=== PATIENT | male | born 1955 | race Caucasian/White ===

== ENCOUNTER 2017-01-26 09:16 | Inpatient (IN) | payer BC ==
[2017-01-26 09:45] VITALS: BMI 22.3
[2017-01-26] MEDS ORDERED: Aspirin 325 mg EC Tablets PO STA (10:06)
--- NOTE | 2017-01-26 10:09 | ED PDOC ---
HPI: Chest Pain Time Seen by Provider: 01/26/17 09:27 Chief Complaint (Nursing): Chest Pain Chief Complaint (Provider): Chest Pain History Per: Patient History/Exam Limitations: no limitations Onset/Duration Of Symptoms: Mins Current Symptoms Are (Timing): Gone Now Severity: Moderate Quality: "Pain" Associated Symptoms: denies: Nausea, Dyspnea, Diaphoresis, Syncope Modifying Factors: None Exacerbating Factors: None Alleviating Factors: None Additional Complaint(s): Patient is a 61 year old male with a history of TB, presents to ED for evaluation of sudden onset throbbing chest pain with radiation into right arm this morning. Patients pain began at 9am and lasted 30 minutes with spontaneous resolution. Patient does note that a cough with nausea and vomiting for 4 days. States he had mild chest pain with coughing at that time but this morning's pain was much different and occurred without coughing. Patient denies any pain at this time. Patient states he normally takes ASA dialy but did not take any this morning. Of note: Patient being treated for TB, 3 months of medication left. PMD: Dr. Guardado in [place] Past Medical History Reviewed: Historical Data, Nursing Documentation, Vital Signs Vital Signs: Last Vital Signs Temp 98.5 F 01/26/17 16:07 Pulse 62 01/26/17 16:07 Resp 18 01/26/17 17:22 BP 138/82 01/26/17 16:07 Pulse Ox 98 01/26/17 16:07 - Medical History PMH: Hypercholesterolemia - Surgical History Surgical History: No Surg Hx - Family History Family History: States: No Known Family Hx - Living Arrangements Living Arrangements: With Family - Social History Current smoker - smoking cessation education provided: No (Quit 4 days ago ) Alcohol: Occasional Drugs: Denies - Home Medications Home Medications: Ambulatory Orders Medication Instructions Recorded Aspirin [Aspirin Chewable] 81 mg PO DAILY 01/26/17 Isoniazid [Niazid] 300 mg PO DAILY 01/26/17 Pravastatin Sodium 40 mg PO DAILY 01/26/17 Pyridoxine [Vitamin B6] 50 mg PO DAILY 01/26/17 - Allergies Allergies/Adverse Reactions: Allergies Allergy/AdvReac Type Severity Reaction Status Date / Time Influenza Virus Vaccines Allergy RASH Verified 01/26/17 17:14 SILVIA Risk Score for UA/NSTEMI - SILVIA Risk Score Age > 64: NO 3 or more CAD Risk Factors: NO Known CAD (Stenosis greater than 50%): NO Aspirin use in past 7 days: NO Severe Angina: NO EKG ST changes greater than 0.5mm: NO Positive Cardiac Marker: NO SILVIA Score: 0 Risk %: 5% Review of Systems ROS Statement: Except As Marked, All Systems Reviewed And Found Negative Constitutional: Negative for: Weakness Eyes: Negative for: Vision Change ENT: Negative for: Ear Pain, Throat Pain Cardiovascular: Positive for: Chest Pain. Negative for: Palpitations, Light Headedness Respiratory: Positive for: Cough. Negative for: Shortness of Breath Gastrointestinal: Positive for: Vomiting. Negative for: Nausea Musculoskeletal: Positive for: Arm Pain. Negative for: Neck Pain, Back Pain Skin: Negative for: Rash Neurological: Negative for: Weakness, Numbness Physical Exam - Reviewed Nursing Documentation Reviewed: Yes Vital Signs Reviewed: Yes - Physical Exam Appears: Positive for: Non-toxic, No Acute Distress Skin: Positive for: Normal Color, Warm Eye Exam: Positive for: Normal appearance Neck: Positive for: Normal, Painless ROM Cardiovascular/Chest: Positive for: Regular Rate, Rhythm, Chest Non Tender. Negative for: Murmur Respiratory: Positive for: Normal Breath Sounds. Negative for: Respiratory Distress Gastrointestinal/Abdominal: Positive for: Normal Exam. Negative for: Tenderness Back: Positive for: Normal Inspection Extremity: Positive for: Normal ROM Neurologic/Psych: Positive for: Alert, Oriented - Laboratory Results Result Diagrams: 01/26/17 10:40 01/26/17 10:40 - ECG ECG: Positive for: Interpreted By Me ECG Rhythm: Positive for: Sinus Tachycardia Interpretation Of Abn EKG: with occasional PVC's Rate: 103 O2 Sat by Pulse Oximetry: 97 (RA) Pulse Ox Interpretation: Normal Medical Decision Making Medical Decision Making: Time: 1000 Initial impression: Chest pain r/o ACS Initial plan: -- CMP -- Troponin -- CBC -- CXR -- ASA Time: 1320 Labs reviewed: Troponin negative Discussed lab results with patient advised that we are waiting a CXR but he will be admitted to Dr. Jimenez, [facility] [employer] because his PMD does not come to this hospital pt given asa Time: 1430 CXR: No active pulmonary disease Time: 1435 paged for admission Time: 1441 contacted, case discussed, requesting D-Dimer. Agrees with plan and will give admission orders pt aware of plan. pt eating, states cp subsided. Plan: -- dr jimenez requests D-Dimer ddimer .52, ordered CT chest rule out pe Scribe Attestation: Documented by Rebeca Logan acting as a scribe for Maco Ramey MD MD Scribe Attestation: All medical record entries made by the Scribe were at my direction and personally dictated by me. I have reviewed the chart and agree that the record accurately reflects my personal performance of the history, physical exam, medical decision making, and the department course for this patient. I have also personally directed, reviewed, and agree with the discharge instructions and disposition. Disposition - Clinical Impression Clinical Impression: Chest pain - Patient ED Disposition Is Patient to be Admitted: Yes Counseled Patient/Family Regarding: Studies Performed, Diagnosis - Disposition Disposition Time: 12:00 Condition: GOOD
[2017-01-26 10:52] LABS: BASO % 0.6 % (0.0-2.0); EOS # 0.1 K/uL (0.0-0.7); EOS % 1.9 % (0.0-4.0); HEMATOCRIT 40.5 % (35.0-51.0); LYMPH # 0.9 K/uL (1.0-4.3); MEAN CELL VOLUME 94.5 fl (80.0-94.0); MEAN CORPUSCULAR HEMOGLOBIN 31.3 pg (27.0-31.0); MEAN CORPUSCULAR HGB CONC 33.2 g/dL (33.0-37.0); MEAN PLATELET VOLUME 8.6 fl (7.2-11.7); MONO # 0.6 K/uL (0.0-0.8); NEUT # 2.3 K/uL (1.8-7.0); NEUT % 60.5 % (50.0-75.0); NRBC % 0.1 % (0.0-0.0); RED CELL DISTRIBUTION WIDTH 13.5 % (11.5-14.5); WHITE BLOOD COUNT 3.9 K/uL (4.8-10.8)
[2017-01-26 10:54] LABS: CHLORIDE 102 mmol/L (98-107)
[2017-01-26 10:55] LABS: POTASSIUM 4.1 MMOL/L (3.6-5.0); SODIUM 139 mmol/l (132-148)
[2017-01-26 10:57] LABS: AST/SGOT 24 U/L (17-59); BILIRUBIN,TOTAL 0.5 mg/dl (0.2-1.3); CARBON DIOXIDE 29 mmol/L (22-30); GFR AFRICAN-AMERICAN > 60
[2017-01-26 10:58] LABS: ALB/GLOB RATIO 1.2 (1.0-2.1); ALKALINE PHOSPHATASE 60 U/L (38-126); ALT/SGPT 31 U/L (21-72); BLOOD UREA NITROGEN 17 mg/dl (9-20); CALCIUM 8.9 mg/dL (8.4-10.2); GLUCOSE,RANDOM 116 mg/dL (75-110); TOTAL PROTEIN 7.1 G/DL (6.3-8.2)
[2017-01-26] MEDS ORDERED: Gadodiamide 287 MG/ML VIAL (15ML) IV ONE (13:49)
[2017-01-26] MEDS ORDERED: Iodixanol 320 MG/ML 100 ML BOTTLE IV ONE (15:56)
[2017-01-26] MEDS ORDERED: Sodium Chloride 0.9% 50 ML IV ONE (15:57)
[2017-01-26] MEDS ORDERED: Pneumococcal 23-Valent Vaccine IM ONE (17:50)
[2017-01-26] MEDS: Sodium Chloride 0.45% 1,000 ML IV SCH (18:49)
--- NOTE | 2017-01-26 18:53 | CT ---
CT chest with IV contrast Indication: Slightly elevated D-dimer Technique: Contiguous axial images were obtained through the chest with intravenous contrast enhancement. Sagittal and coronal reconstructions were generated and reviewed. IV Contrast: Visipaque [id number] Radiation dose (DLP): 402.40 MGy-cm. Comparison: Chest x-ray performed earlier the same day. Findings: Visualized portions of the inferior thyroid gland appear unremarkable. The mediastinal and hilar vascular structures appear within normal limits. The heart appears within normal limits of size. Dense coronary artery calcifications. No large central or segmental pulmonary embolus evident. Mild emphysematous changes. No focal consolidation. No pleural effusion. No pneumothorax. No suspicious pulmonary nodules measuring greater than 5 mm. Small hiatal hernia. Limited visualization of the upper abdomen appears grossly unremarkable. Mild degenerative changes of the spine. Impression: Mild emphysematous changes. No large central or segmental pulmonary embolus identified.
--- NOTE | 2017-01-26 19:40 | CP.PCM.HP ---
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 Patients pain began at 9am and lasted 30 minutes with spontaneous resolution. + non-productive cough with nausea and vomiting for 4 days. States he had mild chest pain with coughing at that time but this morning's pain was much different and occurred without coughing. Patient denies any pain at this time. Patient states he normally takes ASA daily but did not take any this morning. Present on Admission - Present on Admission Any Indicators Present on Admission: No History of DVT/PE: No History of Uncontrolled Diabetes: No Urinary Catheter: No Decubitus Ulcer Present: No Review of Systems - Review of Systems All systems: reviewed and no additional remarkable complaints except - Cardiovascular Cardiovascular: As Per HPI - Respiratory Respiratory: As Per HPI Past Patient History - Past Medical History & Family History Past Medical History?: Yes Past Family History: Reviewed and not pertinent - Past Social History Smoking Status: Former Smoker Alcohol: Occasional Drugs: Denies - CARDIAC Hx Hypercholesterolemia: Yes - PULMONARY Hx Respiratory Disorders: Yes (TB) Hx Tuberculosis: Yes (Latent ) - NEUROLOGICAL Hx Neurological Disorder: No - HEENT Hx HEENT Problems: No - RENAL Hx Chronic Kidney Disease: No - ENDOCRINE/METABOLIC Hx Endocrine Disorders: No - HEMATOLOGICAL/ONCOLOGICAL Hx Blood Disorders: No Hx AIDS: No Hx Human Immunodeficiency Virus (HIV): No - INTEGUMENTARY Hx Dermatological Problems: No - MUSCULOSKELETAL/RHEUMATOLOGICAL Hx Musculoskeletal Disorders: No Hx Falls: No - GASTROINTESTINAL Hx Gastrointestinal Disorders: No - GENITOURINARY/GYNECOLOGICAL Hx Genitourinary Disorders: No - PSYCHIATRIC Hx Psychophysiologic Disorder: Yes Hx Anxiety: Yes Hx Substance Use: No - SURGICAL HISTORY Hx Surgeries: No Hx Orthopedic Surgery: Yes (knee) - ANESTHESIA Hx Anesthesia: Yes Hx Anesthesia Reactions: No Hx Malignant Hyperthermia: No Has any member of the family had a problem w/ anesthesia?: No Meds Allergies/Adverse Reactions: Allergies Allergy/AdvReac Type Severity Reaction Status Date / Time Influenza Virus Vaccines Allergy RASH Verified 01/26/17 17:14 Physical Exam - Constitutional Appears: Well, No Acute Distress - Head Exam Head Exam: ATRAUMATIC, NORMAL INSPECTION, NORMOCEPHALIC - Eye Exam Eye Exam: EOMI, Normal appearance, PERRL Pupil Exam: NORMAL ACCOMODATION, PERRL - ENT Exam ENT Exam: Mucous Membranes Moist, Normal Exam - Neck Exam Neck exam: Positive for: Full Rom, Normal Inspection - Respiratory Exam Respiratory Exam: Clear to Auscultation Bilateral, NORMAL BREATHING PATTERN - Cardiovascular Exam Cardiovascular Exam: REGULAR RHYTHM, +S1, +S2 - GI/Abdominal Exam GI & Abdominal Exam: Normal Bowel Sounds, Soft. absent: Rebound, Tenderness - Extremities Exam Extremities exam: Positive for: full ROM, normal capillary refill, normal inspection - Back Exam Back exam: NORMAL INSPECTION. absent: CVA tenderness (L), CVA tenderness (R) - Neurological Exam Neurological exam: Alert, CN II-XII Intact, Normal Gait, Oriented x3, Reflexes Normal - Psychiatric Exam Psychiatric exam: Normal Affect, Normal Mood - Skin Skin Exam: Dry, Intact, Normal Color, Warm Results - Vital Signs Recent Vital Signs: Last Vital Signs Temp 98.5 F 01/26/17 16:07 Pulse 103 H 01/26/17 18:31 Resp 18 01/26/17 17:22 BP 138/82 01/26/17 16:07 Pulse Ox 97 01/26/17 18:31 - Labs Result Diagrams: 01/26/17 10:40 01/26/17 10:40 Labs: Laboratory Results - last 24 hr 01/26/17 01/26/17 14:50 18:30 D-Dimer, Quantitative 0.52 H Troponin I < 0.0120 - EKG Data EKG shows normal: Sinus rhythm, QRS complexes, ST-T waves Rate: Normal - Imaging and Cardiology CT scan - chest Status: Report reviewed by me Additional comment: Impression: Mild emphysematous changes. No large central or segmental pulmonary embolus identified. Assessment & Plan (1) Chest pain Assessment and Plan: R/O ACS VS Atypical Chest PAin Admit to Tele ASA/Pravastatin/Pepcid Serial Trop and EKHG x3 Echocardiogram Cardiology Consult Status: Acute Priority: High (2) Acute bronchitis Assessment and Plan: IVF IV Levaquin ID and Pulmonary Consult Sputum C/S Status: Acute Priority: High (3) Tuberculosis Assessment and Plan: Latent TB Continue INH and Pyidoxine ID Consulted Status: Acute (4) DVT prophylaxis Assessment and Plan: Lovenox 40mg Sq daily Status: Inactive Priority: Medium
--- NOTE | 2017-01-26 19:42 | CP.PCM.CON ---
History of Present Illness - History of Present Illness History of Present Illness: 61 year old male with a history of latent TB as well as Obstructive sleep apnea presents to ED for evaluation of sudden onset throbbing chest pain with radiation into right arm this morning. associated palpatations and weakness Pain different from pain induced by coughing Patients pain began at 9am and lasted 30 minutes with spontaneous resolution. Patient does note that a cough with nausea for 4 days. Cough productive of green phlegm Of note: Patient being treated for latent TB, 3 months of medication left. Review of Systems - Constitutional Constitutional: As Per HPI - EENT Eyes: absent: As Per HPI, Blind Spots, Blurred Vision, Change in Vision, Decreased Night Vision, Diplopia, Discharge, Dry Eye, Exophthalmos, Floaters, Irritation, Itchy Eyes, Loss of Peripheral Vision, Pain, Photophobia, Requires Corrective Lenses, Sees Flashes, Spots in Vision, Tunnel Vision, Other Visual Disturbances, Loss of Vision, Other Ears: absent: As Per HPI, Decreased Hearing, Ear Discharge, Ear Pain, Tinnitus, Abnormal Hearing, Disequilibrium, Dizziness, Other Nose/Mouth/Throat: absent: As Per HPI, Epistaxis, Nasal Congestion, Nasal Discharge, Nasal Obstruction, Nasal Trauma, Nose Pain, Post Nasal Drip, Sinus Pain, Sinus Pressure, Bleeding Gums, Change in Voice, Dental Pain, Dry Mouth, Dysphagia, Halitosis, Hoarsness, Lip Swelling, Mouth Lesions, Mouth Pain, Odynophagia, Sore Throat, Throat Swelling, Tongue Swelling, Facial Pain, Neck Pain, Neck Mass, Other - Cardiovascular Cardiovascular: As Per HPI, Chest Pain at Rest, Chest Pain with Activity - Respiratory Respiratory: absent: As Per HPI, Cough, Dyspnea, Hemoptysis, Dyspnea on Exertion , Wheezing, Snoring, Stridor, Pain on Inspiration, Chest Congestion, Excessive Mucous Production, Change in Mucous Color, Pain with Coughing, Other - Gastrointestinal Gastrointestinal: absent: As Per HPI, Abdominal Pain, Belching, Bloating, Change in Bowel Habits, Change in Stool Character, Coffee Ground Emesis, Constipation, Cramping, Diarrhea, Dyspepsia, Dysphagia, Early Satiety, Excessive Flatus, Fecal Incontinence, Heartburn, Hematemesis, Hematochezia, Loose Stools, Melena, Nausea, Odynophagia, Temesmus, Vomiting, Other - Genitourinary Genitourinary: absent: As Per HPI, Change in Urinary Stream, Difficulty Urinating, Dysuria, Flank Pain, Hematuria, Pyuria, Nocturia, Urinary Incontinence, Urinary Frequency, Urinary Hesitance, Urinary Urgency, Voiding Freq/Small Amts, Freq UTI, Hx Renal/Bladder Calculi, Hx /Renal Surgery, Bladder Distension, Other - Musculoskeletal Musculoskeletal: absent: As Per HPI, Abnormal Gait, Arthralgias, Atrophy, Back Pain, Deformity, Joint Swelling, Limited Range of Motion, Loss of Height, Muscle Cramps, Muscle Weakness, Myalgias, Neck Pain, Numbness, Radiating Pain into Limb, Stiffness, Tingling, Other - Integumentary Integumentary: absent: As Per HPI, Acne, Alopecia, Bleeding Lesions, Change in Hair, Change in Nails, Change in Pigmentation, Changing Lesions, Dry Skin, Erythema, Furuncle, Hirsutism, Lesions, New Lesions, Non-Healing Lesions, Photosensitivity, Pruritus, Rash, Skin Pain, Skin Ulcer, Sores, Striae, Swelling , Unusual Bruising, Wounds, Jaundice, Other - Neurological Neurological: absent: As Per HPI, Abnormal Gait, Abnormal Hearing, Abnormal Movements, Abnormal Speech, Behavioral Changes, Burning Sensations, Confusion, Convulsions, Disequilibrium, Dizziness, Numbness, Focal Weakness, Frequent Falls , Headaches, Lack of Coordination, Loss of Vision, Memory Loss, Paresthesias, Radicular Pain, Restless Legs, Sensory Deficit, Syncope, Tingling, Tremor, Vertigo, Weakness, Other Visual Disturbances, Other - Psychiatric Psychiatric: absent: As Per HPI, Abnormal Sleep Pattern, Anhedonia, Anxiety, Auditory Hallucinations, Behavioral Changes, Change in Appetite, Change in Libido, Confusion, Depression, Difficulty Concentrating, Hallucinations, Homicidal Ideation, Hopelessness, Irritability, Memory Loss, Mood Swings, Panic Attacks, Paranoia, Suicidal Ideation, Visual Hallucinations, Tactile Hallucinations, Other - Endocrine Endocrine: absent: As Per HPI, Change in Body Appearance, Change in Libido, Cold Intolorance, Deepening of Voice, Excessive Sweating, Fatigue, Flushing, Heat Intolorance, Increase in Ring/Shoe/Hat Size, Palpitations, Polydipsia, Polyphagia, Polyuria, Other - Hematologic/Lymphatic Hematologic: absent: As Per HPI, Easy Bleeding, Easy Bruising, Lymphadenopathy, Other Past Patient History - Past Medical History & Family History Past Medical History?: Yes - Past Social History Alcohol: Occasional Drugs: Denies - CARDIAC Hx Hypercholesterolemia: Yes - PULMONARY Hx Respiratory Disorders: Yes (TB) Hx Tuberculosis: Yes - NEUROLOGICAL Hx Neurological Disorder: No - HEENT Hx HEENT Problems: No - RENAL Hx Chronic Kidney Disease: No - ENDOCRINE/METABOLIC Hx Endocrine Disorders: No - HEMATOLOGICAL/ONCOLOGICAL Hx Blood Disorders: No Hx AIDS: No Hx Human Immunodeficiency Virus (HIV): No - INTEGUMENTARY Hx Dermatological Problems: No - MUSCULOSKELETAL/RHEUMATOLOGICAL Hx Musculoskeletal Disorders: No Hx Falls: No - GASTROINTESTINAL Hx Gastrointestinal Disorders: No - GENITOURINARY/GYNECOLOGICAL Hx Genitourinary Disorders: No - PSYCHIATRIC Hx Psychophysiologic Disorder: Yes Hx Anxiety: Yes Hx Substance Use: No - SURGICAL HISTORY Hx Surgeries: No Hx Orthopedic Surgery: Yes (knee) - ANESTHESIA Hx Anesthesia: Yes Hx Anesthesia Reactions: No Hx Malignant Hyperthermia: No Has any member of the family had a problem w/ anesthesia?: No Meds Allergies/Adverse Reactions: Allergies Allergy/AdvReac Type Severity Reaction Status Date / Time Influenza Virus Vaccines Allergy RASH Verified 01/26/17 17:14 - Medications Medications: Current Medications Aspirin (Aspirin Chewable) 325 mg PO DAILY [facility] Enoxaparin Sodium (Lovenox) 40 mg SC DAILY [facility] PRN Reason: Protocol Famotidine (Pepcid) 20 mg PO BID [facility] Sodium Chloride (Sodium Chloride 0.45%) 1,000 mls @ 100 mls/hr IV .Q10H SHANNAN Stop: 01/27/17 17:31 Last Admin: 01/26/17 18:49 Dose: 100 mls/hr Levofloxacin/Dextrose (Levaquin 500mg) 100 mls @ 100 mls/hr IVPB DAILY [facility] Isoniazid (Niazid) 300 mg PO DAILY [facility] Pravastatin Sodium (Pravachol) 40 mg PO DAILY [facility] Pyridoxine HCl (Vitamin B6 50 Mg Tab) 50 mg PO DAILY [facility] Physical Exam - Constitutional Appears: Non-toxic, Chronically Ill - Head Exam Head Exam: ATRAUMATIC, NORMOCEPHALIC - Eye Exam Eye Exam: EOMI, PERRL. absent: Scleral icterus - ENT Exam ENT Exam: Mucous Membranes Dry, Normal External Ear Exam - Neck Exam Neck exam: Negative for: Lymphadenopathy - Respiratory Exam Respiratory Exam: Decreased Breath Sounds, Clear to Auscultation Bilateral - Cardiovascular Exam Cardiovascular Exam: REGULAR RHYTHM, +S1, +S2 - GI/Abdominal Exam GI & Abdominal Exam: Diminished Bowel Sounds, Soft. absent: Tenderness - Rectal Exam Rectal Exam: Deferred - Exam Exam: NORMAL INSPECTION - Extremities Exam Extremities exam: Positive for: pedal pulses present. Negative for: calf tenderness, pedal edema, tenderness - Back Exam Back exam: absent: CVA tenderness (L), CVA tenderness (R), paraspinal tenderness - Neurological Exam Neurological exam: Alert, CN II-XII Intact, Oriented x3, Reflexes Normal - Psychiatric Exam Psychiatric exam: Normal Mood - Skin Skin Exam: Dry, Intact Results - Vital Signs Recent Vital Signs: Last Vital Signs Temp 98.5 F 01/26/17 16:07 Pulse 103 H 01/26/17 18:31 Resp 18 01/26/17 17:22 BP 138/82 01/26/17 16:07 Pulse Ox 97 01/26/17 18:31 - Labs Result Diagrams: 01/26/17 10:40 01/26/17 10:40 Labs: Laboratory Results - last 24 hr 01/26/17 01/26/17 14:50 18:30 D-Dimer, Quantitative 0.52 H Troponin I < 0.0120 Assessment & Plan - Assessment and Plan (Free Text) Assessment: chest pain r/o acs cough with phlegm r/o acute bronchitis hx latent tb on rx hx obst sleep apnea may need bipap check cultures , serologies and old records
[2017-01-26] MEDS ORDERED: Sodium Chloride 3% for Inhalation 4 ML VIAL.NEB IH PRN (19:46)
[2017-01-27 01:41] LABS: RBC URINE 3 /hpf (0-3); URINE BILIRUBIN NEGATIVE (NEGATIVE); URINE BLOOD NEGATIVE (NEGATIVE); URINE COLOR YELLOW (YELLOW); URINE GLUCOSE (UA) NEG (Normal); URINE KETONE NEGATIVE (NEGATIVE); URINE LEUKOCYTE ESTERASE NEG Leu/uL (Negative); URINE PROTEIN NEGATIVE (NEGATIVE); URINE UROBILINOGEN 0.2-1.0 mg/dL (0.2-1.0); WBC URINE < 1 /hpf (0-5)
[2017-01-27] MEDS: Sodium Chloride 0.45% 1,000 ML IV SCH ×2 (03:24→14:30)
[2017-01-27] MEDS: Enoxaparin 40 mg Syringe SC SCH (08:44)
[2017-01-27] MEDS: Pravastatin Sodium 40 MG TAB PO SCH (08:46)
--- NOTE | 2017-01-27 09:45 | CARD ---
APPROVED REPORT EKG Measurement Heart [id number] <Conclusion> Sinus rhythm with premature supraventricular complexes Otherwise normal ECG
--- NOTE | 2017-01-27 11:16 | CARD ---
APPROVED REPORT EXAM: Two-dimensional and M-mode echocardiogram with Doppler and color Doppler. Other Information Quality : GoodRhythm : NSR INDICATION Chest Pain 2D DIMENSIONS IVSd0.96 (0.7-1.1cm)LVDd4.60 (3.9-5.9cm) LVOT Diameter2.58 (1.8-2.4cm)PWd1.05 (0.7-1.1cm) IVSs1.38 (0.8-1.2cm)LVDs3.75 (2.5-4.0cm) FS (%) 18.4 %PWs1.26 (0.8-1.2cm) M-Mode DIMENSIONS Left Atrium (MM)3.89 (2.5-4.0cm)IVSd1.27 (0.7-1.1cm) Aortic Root3.36 (2.2-3.7cm)LVDd5.38 (4.0-5.6cm) Aortic Cusp Exc.1.30 (1.5-2.0cm)PWd0.91 (0.7-1.1cm) IVSs1.90 cmFS (%) 40 % LVDs3.23 (2.0-3.8cm)PWs1.52 cm Aortic Valve AoV Peak Glwpzroa989.7cm/[place] Peak GR.75mmHgLVOT Peak Cgyjtpwp16.3cm/s LVOT VTI15.77cmAVA (VMAX)0.58cm2 Mitral Valve E/A ratio0.0 TDI E/Lateral E'0.0E/Medial E'0.0 LEFT VENTRICLE The left ventricle is normal size. There is mild concentric left ventricular hypertrophy. Left ventricle systolic function is normal. The Ejection Fraction is 65-70%. There is normal LV segmental wall motion. Mitral inflow signal poor in quality, to asses LV diastolic compliance. RIGHT VENTRICLE The right ventricle is normal size. There is normal right ventricular wall thickness. The right ventricular systolic function is normal. ATRIA The left atrium size is normal. The right atrium size is normal. AORTIC VALVE The aortic valve is moderately to severely sclerotic. No aortic regurgitation is present. There is severe valvular aortic stenosis. Calculated aortic valve area is 0.95 cm2 with maximum pressure gradient of 74 mmHg MITRAL VALVE The mitral valve is normal in structure and function. There is no evidence of mitral valve prolapse. There is no mitral valve stenosis. There is no mitral valve regurgitation noted. TRICUSPID VALVE The tricuspid valve is normal in structure and function. There is no tricuspid valve regurgitation noted. PULMONIC VALVE The pulmonary valve is normal in structure and function. There is no pulmonic valvular regurgitation. GREAT VESSELS The aortic root is normal in size. The IVC is normal in size and collapses >50% with inspiration. PERICARDIAL EFFUSION The pericardium appears normal. <Conclusion> The left ventricle is normal size. There is mild concentric left ventricular hypertrophy. There is normal LV segmental wall motion. Left ventricle systolic function is normal. The Ejection Fraction is 65-70%. The aortic valve is moderately to severely sclerotic. There is severe valvular aortic stenosis. Calculated aortic valve area is 0.95 cm2 with maximum pressure gradient of 74 mmHg
--- NOTE | 2017-01-27 12:56 | CON ---
DATE: 01/27/2017 REASON FOR CONSULTATION: Chest pain. HISTORY OF PRESENT ILLNESS: The patient is a 61-year-old male who is a heavy smoker, occasional drin ker. He has BiPAP at home. He does not have a irrigation equipment remover, but he sees a primary physician. He presents because of chest pain. The patient has been experiencing flu-like symptoms, including produ ctive cough for the past few days and attributes his chest pain to extreme bouts of coughing. Howeve r, he lately started to experience sharp chest pain radiating to the right arm. The patient is unawa re of any prior cardiac history. SOCIAL HISTORY: The patient is a heavy smoker. Occasional drinker. MEDICATIONS: Aspirin 325 mg once a day, Levaquin 500 mg intravenously daily, Lovenox 40 mg subcutane ously once a day, isoniazid 300 mg daily, Pepcid 20 mg p.o. twice a day, Pravachol 40 mg once a day, half normal saline at 100 mL an hour, vitamin B6 50 mg once a day. PHYSICAL EXAMINATION: GENERAL: The patient is a middle-aged male who does not appear to be in any distress. VITAL SIGNS: Blood pressure 124/79, heart rate 66, temperature 98.2, respirations 18. HEENT: Normocephalic. NECK: No JVD. CHEST: Bilateral rhonchi. HEART: S1, S2 regular. ABDOMEN: Soft. EXTREMITIES: No edema. LABORATORY DATA: CBC: WBC 3.9, hemoglobin 13.4, hematocrit 40.5, platelet count 123,000. SMA-7 is within normal limits except for glucose 116 and creatinine 0.6. Three sets of troponins are negative . D-dimer 0.25. CT angio of the chest: No large central or segmental pulmonary embolus evident, mi ld emphysematous changes. No suspicious pulmonary nodules. EKG revealed sinus rhythm with premature supraventricular complexes. Echocardiographic study revealed normal left ventricular size with mild concentric LVH, normal systolic function, ejection fraction estimated between 65-70%, severe valvula r aortic stenosis. ASSESSMENT: 1. Exacerbation of chronic obstructive lung disease. 2. Severe aortic stenosis. RECOMMENDATIONS: Continue current aspirin 325 mg once a day, Levaquin at 500 mg intravenously daily, subcutaneous Lovenox at 40 mg once a day, Pravachol at 40 mg once a day. I recommend obtaining ches t x-ray. I will review the echocardiograph study performed yesterday for the conclusion of severe va lvular aortic stenosis and offer the patient cardiac catheterization after resolution of his chronic obstructive lung disease exacerbation. Jose Scott MD cc: [id number] TT: 01/27/2017 12:55:43 Confirmation # [id number] Dictation # [id number]
--- NOTE | 2017-01-27 13:02 | RAD ---
HISTORY: COMPARISON: Comparison chest dated 01/26/2017. TECHNIQUE: Chest PA and lateral FINDINGS: LUNGS: No acute infiltrates however there may be some minimal bibasilar atelectasis due to low lung volumes. . PLEURA: No significant pleural effusion identified. No pneumothorax apparent. CARDIOVASCULAR: Normal. OSSEOUS STRUCTURES: Minor multilevel degenerative spondylosis of the thoracic spine. VISUALIZED UPPER ABDOMEN: Normal. OTHER FINDINGS: None. IMPRESSION: No acute consolidation however there may be some minimal bibasilar atelectasis due to low lung volumes
--- NOTE | 2017-01-27 14:46 | CP.PCM.PN ---
Subjective - Date & Time of Evaluation Date of Evaluation: 01/27/17 Time of Evaluation: 08:00 - Subjective Subjective: chest pain resolved at rest CT Chest remarkable for diffuse coronary calcifications no fever or leukocytosis influenza negative troponins neg thus far and no malignant arrythmias thus far will likely need stress test cont rx as per dr jimenez Objective - Vital Signs/Intake and Output Vital Signs (last 24 hours): Temp Pulse Resp BP Pulse Ox 98.2 F 66 18 124/79 95 01/27/17 08:05 01/27/17 08:05 01/27/17 08:05 01/27/17 08:05 01/27/17 08:05 - Medications Medications: Current Medications Aspirin (Aspirin) 325 mg PO DAILY [facility] Last Admin: 01/27/17 08:54 Dose: 325 mg Enoxaparin Sodium (Lovenox) 40 mg SC DAILY [facility] PRN Reason: Protocol Last Admin: 01/27/17 08:44 Dose: 40 mg Famotidine (Pepcid) 20 mg PO BID [facility] Last Admin: 01/27/17 08:53 Dose: 20 mg Sodium Chloride (Sodium Chloride 0.45%) 1,000 mls @ 100 mls/hr IV .Q10H [facility] Stop: 01/27/17 17:31 Last Admin: 01/27/17 03:24 Dose: 100 mls/hr Levofloxacin/Dextrose (Levaquin 500mg) 100 mls @ 100 mls/hr IVPB DAILY [facility] Last Admin: 01/27/17 08:55 Dose: 100 mls/hr Isoniazid (Niazid) 300 mg PO DAILY [facility] Last Admin: 01/27/17 08:54 Dose: 300 mg Pravastatin Sodium (Pravachol) 40 mg PO DAILY [facility] Last Admin: 01/27/17 08:46 Dose: 40 mg Pyridoxine HCl (Vitamin B6 50 Mg Tab) 50 mg PO DAILY [facility] Last Admin: 01/27/17 08:54 Dose: 50 mg - Constitutional Appears: Non-toxic, Chronically Ill - Head Exam Head Exam: NORMOCEPHALIC - Eye Exam Eye Exam: PERRL. absent: Scleral icterus - ENT Exam ENT Exam: Mucous Membranes Dry - Neck Exam Neck Exam: absent: Lymphadenopathy - Respiratory Exam Respiratory Exam: Decreased Breath Sounds - Cardiovascular Exam Cardiovascular Exam: REGULAR RHYTHM, +S1, +S2 - GI/Abdominal Exam GI & Abdominal Exam: Distended, Soft. absent: Tenderness - Rectal Exam Rectal Exam: Deferred - Exam Exam: NORMAL INSPECTION - Extremities Exam Extremities Exam: absent: Calf Tenderness, Pedal Edema - Back Exam Back Exam: absent: CVA tenderness (L), CVA tenderness (R) - Neurological Exam Neurological Exam: Alert, Awake, Oriented x3 Neuro motor strength exam: Left Upper Extremity: 4, Right Upper Extremity: 4, Left Lower Extremity: 4, Right Lower Extremity: 4 - Psychiatric Exam Psychiatric exam: Normal Mood - Skin Skin Exam: Dry, Intact Assessment and Plan (1) Acute bronchitis Status: Acute (2) Chest pain Status: Acute (3) Latent tuberculosis Status: Acute
--- NOTE | 2017-01-27 15:58 | CON ---
DATE: 01/27/2017 HISTORY OF PRESENT ILLNESS: The patient is a 61-year-old male who was referred for pulmonary evaluat ion by Dr. Horan. He was admitted with complaints of chest pains on and off for the past 2 days radi ating to the right arm. He was seen in the Emergency Room and admitted for workup to rule out acute coronary syndrome. He admits to cigarette smoking and he indicated that he had been sick for 2 days prior to his presentation. He has no cough recently, but in the past has had a cough productive of g reenish phlegm. PAST MEDICAL HISTORY: History of latent TB and obstructive sleep apnea syndrome. FAMILY HISTORY: Nonrevealing. SOCIAL HISTORY: He lives at home with his family. Smokes cigarettes, a pack a day. Does not drink alcohol. REVIEW OF SYSTEMS: Essentially unremarkable. PHYSICAL EXAMINATION: GENERAL: The patient is alert, oriented, appears to be in no apparent distress at present. VITAL SIGNS: Blood pressure 124/70, pulse of 66, respiratory rate is 18. He is afebrile. O2 sat 95 % on room air. SKIN: Shows fair turgor. HEENT: Pupils equal and react to light and accommodation. Mouth shows fair hygiene. NECK: JVP flat. LUNGS: Fair aeration with mild expiratory wheezing. HEART: S1, S2. ABDOMEN: Soft, nontender, no organomegaly. EXTREMITIES: Show no edema or cyanosis. CENTRAL NERVOUS SYSTEM: Grossly intact. LABORATORY DATA: WBC 3.9, hemoglobin 13.4, platelet count 123,000. Sodium 139, potassium 4.4, BUN 1 7, creatinine 0.6, serum glucose 116. Troponin less than 0.012. Influenza A and B negative. Chest x-ray official report pending, but CAT scan of the chest indicates small hiatal hernia, emphysematous changes of the lung, no large central pulmonary emboli. Echocardiogram is remarkable for left ventr icle normal. There is mild concentric LVH. There is a normal left ventricular segmental wall motion , left ventricular systolic function with normal ejection fraction 65%-70%, aortic valve is moderatel y to severely sclerotic. There is severe valvular aortic stenosis. IMPRESSION: Acute exacerbation of mild chronic obstructive pulmonary disease, aortic stenosis on ech ocardiogram, upper respiratory tract infection. The patient was advised cardiac workup, but refused, saying that he is going home today to follow up with his primary care doctor. I agree with bronchod ilwendy therapy and antibiotics, oxygen as needed. We will sign off case and see again at your reques t since the patient indicates he is going home. Brooks Lacey MD cc: [id number] TT: 01/27/2017 15:57:14 Confirmation # [id number] Dictation # [id number]
--- NOTE | 2017-01-28 00:33 | CP.PCM.PN ---
Subjective - Date & Time of Evaluation Date of Evaluation: 01/27/17 Time of Evaluation: 23:30 - Subjective Subjective: Seen and Examined at the bed side.Chest pain resolved at rest. No fever or Chills. H/O similar chest pain in the past but never had cardiac catheterization. Objective - Vital Signs/Intake and Output Vital Signs (last 24 hours): Temp Pulse Resp BP Pulse Ox 98.4 F 70 19 133/81 97 01/28/17 00:09 01/28/17 00:09 01/28/17 00:09 01/28/17 00:09 01/28/17 00:09 - Medications Medications: Current Medications Aspirin (Aspirin) 325 mg PO DAILY [facility] Last Admin: 01/27/17 08:54 Dose: 325 mg Enoxaparin Sodium (Lovenox) 40 mg SC DAILY [facility] PRN Reason: Protocol Last Admin: 01/27/17 08:44 Dose: 40 mg Famotidine (Pepcid) 20 mg PO BID [facility] Last Admin: 01/27/17 16:24 Dose: 20 mg Levofloxacin/Dextrose (Levaquin 500mg) 100 mls @ 100 mls/hr IVPB DAILY [facility] Last Admin: 01/27/17 08:55 Dose: 100 mls/hr Isoniazid (Niazid) 300 mg PO DAILY [facility] Last Admin: 01/27/17 08:54 Dose: 300 mg Pravastatin Sodium (Pravachol) 40 mg PO DAILY [facility] Last Admin: 01/27/17 08:46 Dose: 40 mg Pyridoxine HCl (Vitamin B6 50 Mg Tab) 50 mg PO DAILY [facility] Last Admin: 01/27/17 08:54 Dose: 50 mg - Constitutional Appears: Well, No Acute Distress - Head Exam Head Exam: ATRAUMATIC, NORMAL INSPECTION, NORMOCEPHALIC - Eye Exam Eye Exam: EOMI, Normal appearance, PERRL Pupil Exam: NORMAL ACCOMODATION, PERRL - ENT Exam ENT Exam: Mucous Membranes Moist, Normal Exam - Neck Exam Neck Exam: Full ROM, Normal Inspection. absent: Lymphadenopathy - Respiratory Exam Respiratory Exam: Clear to Ausculation Bilateral, NORMAL BREATHING PATTERN - Cardiovascular Exam Cardiovascular Exam: REGULAR RHYTHM, +S1, +S2. absent: Murmur - GI/Abdominal Exam GI & Abdominal Exam: Soft, Normal Bowel Sounds. absent: Tenderness - Extremities Exam Extremities Exam: Full ROM, Normal Capillary Refill, Normal Inspection. absent : Joint Swelling, Pedal Edema - Back Exam Back Exam: NORMAL INSPECTION. absent: CVA tenderness (L), CVA tenderness (R) - Neurological Exam Neurological Exam: Alert, Awake, CN II-XII Intact, Normal Gait, Oriented x3 - Psychiatric Exam Psychiatric exam: Normal Affect, Normal Mood - Skin Skin Exam: Dry, Intact, Normal Color, Warm Assessment and Plan (1) Chest pain Assessment & Plan: R/O CAD Echo showed Aortic Stenosis, and going for Cardiac Catheterize. Continue ASA/Statin Status: Suspected (2) Acute bronchitis Assessment & Plan: Continue IV Levaquin Status: Resolved (3) Tuberculosis Assessment & Plan: Complete INH for 3more months Status: Inactive (4) DVT prophylaxis Status: Inactive
[2017-01-28] MEDS: Enoxaparin 40 mg Syringe SC SCH (08:35)
[2017-01-28] MEDS: Pravastatin Sodium 40 MG TAB PO SCH (08:36)
--- NOTE | 2017-01-28 13:41 | PN ---
DATE: 01/28/2017 SUBJECTIVE: The patient denies any chest pain or shortness of breath at this time. PHYSICAL EXAMINATION: VITAL SIGNS: Blood pressure 126/80, heart rate 85, temperature 98.3, respirations 18. HEENT: Normocephalic. NECK: No JVD. CHEST: Bilateral rhonchi. HEART: S1, S2 regular. Grade IV/ ejection systolic murmur over the left sternal border. ABDOMEN: Soft. EXTREMITIES: No edema. LABORATORIES: A total of 3 troponins are negative. ASSESSMENT: 1. Chest pain, myocardial infarction is ruled out. 2. Severe aortic stenosis. 3. Chronic obstructive lung disease. 4. History of sleep apnea. RECOMMENDATIONS: Continue current aspirin 325 mg once a day, Lovenox 40 mg once a day, Pravachol 40 mg once a day. The case was discussed with the patient and his at the bedside extensively. The patient agrees for cardiac catheterization next week at [facility] to evaluate the severity of aortic stenosis and coexistence of any coronary artery disease. Jose Scott MD cc: [id number] TT: 01/28/2017 13:40:20 Confirmation # [id number] Dictation # [id number]
--- NOTE | 2017-01-29 00:07 | CP.PCM.PN ---
Subjective - Date & Time of Evaluation Date of Evaluation: 01/29/17 Time of Evaluation: 17:05 - Subjective Subjective: Denies Cough, chest pain r sob at this time. scheduled for Cardiac Cath on Monday. I have spoken to the patient and his who stated he had similar episodes of Cardiac finding and had a cardiac stress test. They want the cardiac catheterization to be done ASP. Denies fever or chills. Objective - Vital Signs/Intake and Output Vital Signs (last 24 hours): Temp Pulse Resp BP Pulse Ox 98.3 F 76 18 118/73 95 01/28/17 21:00 01/28/17 21:00 01/28/17 21:00 01/28/17 21:00 01/28/17 21:00 - Medications Medications: Current Medications Aspirin (Aspirin) 325 mg PO DAILY [facility] Last Admin: 01/28/17 08:37 Dose: 325 mg Enoxaparin Sodium (Lovenox) 40 mg SC DAILY [facility] PRN Reason: Protocol Last Admin: 01/28/17 08:35 Dose: 40 mg Famotidine (Pepcid) 20 mg PO BID [facility] Last Admin: 01/28/17 16:04 Dose: 20 mg Levofloxacin/Dextrose (Levaquin 500mg) 100 mls @ 100 mls/hr IVPB DAILY [facility] Last Admin: 01/28/17 08:35 Dose: 100 mls/hr Isoniazid (Niazid) 300 mg PO DAILY [facility] Last Admin: 01/28/17 08:35 Dose: 300 mg Pravastatin Sodium (Pravachol) 40 mg PO DAILY [facility] Last Admin: 01/28/17 08:36 Dose: 40 mg Pyridoxine HCl (Vitamin B6 50 Mg Tab) 50 mg PO DAILY [facility] Last Admin: 01/28/17 08:36 Dose: 50 mg - Constitutional Appears: Well, No Acute Distress - Head Exam Head Exam: ATRAUMATIC, NORMAL INSPECTION, NORMOCEPHALIC - Eye Exam Eye Exam: EOMI, Normal appearance, PERRL Pupil Exam: NORMAL ACCOMODATION, PERRL - ENT Exam ENT Exam: Mucous Membranes Moist, Normal Exam - Neck Exam Neck Exam: Full ROM, Normal Inspection. absent: Lymphadenopathy - Respiratory Exam Respiratory Exam: Clear to Ausculation Bilateral, NORMAL BREATHING PATTERN - Cardiovascular Exam Cardiovascular Exam: REGULAR RHYTHM, +S1, +S2. absent: Murmur - GI/Abdominal Exam GI & Abdominal Exam: Soft, Normal Bowel Sounds. absent: Tenderness - Extremities Exam Extremities Exam: Full ROM, Normal Capillary Refill, Normal Inspection. absent : Joint Swelling, Pedal Edema - Back Exam Back Exam: NORMAL INSPECTION - Neurological Exam Neurological Exam: Alert, Awake, CN II-XII Intact, Normal Gait, Oriented x3 - Psychiatric Exam Psychiatric exam: Normal Affect, Normal Mood - Skin Skin Exam: Dry, Intact, Normal Color, Warm Assessment and Plan (1) Chest pain Assessment & Plan: Aortic Stenosis R/O CAD Will Go for Cardiac Catheterize. Continue ASA/Statin ehs specialist on Board. Status: Suspected (2) Acute bronchitis Assessment & Plan: Continue IV Levaquin Status: Resolved (3) Tuberculosis Assessment & Plan: Complete INH for 3more months Status: Inactive (4) DVT prophylaxis Status: Inactive Status: Suspected
[2017-01-29] MEDS: Pravastatin Sodium 40 MG TAB PO SCH (09:07)
[2017-01-29] MEDS: Enoxaparin 40 mg Syringe SC SCH (09:08)
--- NOTE | 2017-01-29 13:29 | CP.PCM.PN ---
Subjective - Date & Time of Evaluation Date of Evaluation: 01/29/17 Time of Evaluation: 09:00 - Subjective Subjective: denies chest pain recent cxr positive for atelecatsis vs infiltrate iv rx reordered has Aortic stenosis as well as coronary calcifications needs cardiac cath to further define etiology of chest pain Objective - Vital Signs/Intake and Output Vital Signs (last 24 hours): Temp Pulse Resp BP Pulse Ox 98.6 F 78 18 106/64 95 01/29/17 12:00 01/29/17 12:00 01/29/17 12:00 01/29/17 12:00 01/29/17 12:00 - Medications Medications: Current Medications Aspirin (Aspirin) 325 mg PO DAILY [facility] Last Admin: 01/29/17 09:03 Dose: 325 mg Enoxaparin Sodium (Lovenox) 40 mg SC DAILY [facility] PRN Reason: Protocol Last Admin: 01/29/17 09:08 Dose: 40 mg Famotidine (Pepcid) 20 mg PO BID [facility] Last Admin: 01/29/17 09:08 Dose: 20 mg Levofloxacin/Dextrose (Levaquin 500mg) 100 mls @ 100 mls/hr IVPB DAILY [facility] Last Admin: 01/29/17 09:04 Dose: 100 mls/hr Isoniazid (Niazid) 300 mg PO DAILY [facility] Last Admin: 01/29/17 09:09 Dose: 300 mg Pravastatin Sodium (Pravachol) 40 mg PO DAILY [facility] Last Admin: 01/29/17 09:07 Dose: 40 mg Pyridoxine HCl (Vitamin B6 50 Mg Tab) 50 mg PO DAILY [facility] Last Admin: 01/29/17 09:07 Dose: 50 mg - Constitutional Appears: Non-toxic, Chronically Ill - Head Exam Head Exam: NORMOCEPHALIC - Eye Exam Eye Exam: PERRL. absent: Scleral icterus - ENT Exam ENT Exam: Mucous Membranes Dry, Normal External Ear Exam - Neck Exam Neck Exam: absent: Lymphadenopathy, Thyromegaly - Respiratory Exam Respiratory Exam: Decreased Breath Sounds, Rhonchi - Cardiovascular Exam Cardiovascular Exam: REGULAR RHYTHM, +S1, +S2, Murmur - GI/Abdominal Exam GI & Abdominal Exam: Distended, Soft. absent: Tenderness - Rectal Exam Rectal Exam: Deferred - Exam Exam: NORMAL INSPECTION - Extremities Exam Extremities Exam: absent: Calf Tenderness, Pedal Edema - Back Exam Back Exam: absent: CVA tenderness (L), CVA tenderness (R) - Neurological Exam Neurological Exam: Alert, Awake, Oriented x3 Neuro motor strength exam: Left Upper Extremity: 4, Right Upper Extremity: 4, Left Lower Extremity: 4, Right Lower Extremity: 4 Assessment and Plan (1) Acute bronchitis Status: Resolved (2) Chest pain Status: Suspected (3) Latent tuberculosis Status: Acute
--- NOTE | 2017-01-29 15:03 | PN ---
DATE: 01/29/2017 SUBJECTIVE: The patient denies any chest pain or shortness of breath. PHYSICAL EXAMINATION: VITAL SIGNS: Blood pressure 106/64, heart rate 78, temperature 98.6, respiration 18. HEENT: Normocephalic. NECK: No JVD. CHEST: Minimal rhonchi. HEART: S1, S2 regular. Grade IV/ ejection systolic murmur over than left sternal border. ABDOMEN: Soft. EXTREMITIES: No edema. ASSESSMENT: 1. Chest pain, myocardial infarction was ruled out. 2. Severe aortic stenosis. 3. Chronic obstructive lung disease and sleep apnea. RECOMMENDATIONS: Continue aspirin 325 mg once a day, subcutaneous Lovenox at 40 mg once a day, Levaq uin 500 mg intravenously daily, hold Lovenox tomorrow. The patient will be kept n.p.o. after breakfa st for cardiac catheterization tomorrow at [facility]. Jose Scott MD cc: [id number] TT: 01/29/2017 15:02:32 Confirmation # [id number] Dictation # [id number]
--- NOTE | 2017-01-29 22:45 | CP.PCM.PN ---
Subjective - Date & Time of Evaluation Date of Evaluation: 01/29/17 Time of Evaluation: 17:00 Objective - Vital Signs/Intake and Output Vital Signs (last 24 hours): Temp Pulse Resp BP Pulse Ox 97.8 F 73 18 112/78 95 01/29/17 21:00 01/29/17 21:00 01/29/17 21:00 01/29/17 21:00 01/29/17 21:00 Intake and Output: 01/29/17 01/30/17 18:59 06:59 Intake Total 950 Balance 950 - Medications Medications: Current Medications Aspirin (Aspirin) 325 mg PO DAILY [facility] Last Admin: 01/29/17 09:03 Dose: 325 mg Enoxaparin Sodium (Lovenox) 40 mg SC DAILY [facility] PRN Reason: Protocol Last Admin: 01/29/17 09:08 Dose: 40 mg Famotidine (Pepcid) 20 mg PO BID [facility] Last Admin: 01/29/17 16:42 Dose: 20 mg Levofloxacin/Dextrose (Levaquin 500mg) 100 mls @ 100 mls/hr IVPB DAILY [facility] Last Admin: 01/29/17 09:04 Dose: 100 mls/hr Isoniazid (Niazid) 300 mg PO DAILY [facility] Last Admin: 01/29/17 09:09 Dose: 300 mg Pravastatin Sodium (Pravachol) 40 mg PO DAILY [facility] Last Admin: 01/29/17 09:07 Dose: 40 mg Pyridoxine HCl (Vitamin B6 50 Mg Tab) 50 mg PO DAILY [facility] Last Admin: 01/29/17 09:07 Dose: 50 mg Assessment and Plan (1) Chest pain Status: Suspected
[2017-01-30] MEDS: Enoxaparin 40 mg Syringe SC SCH (08:21)
[2017-01-30] MEDS: Pravastatin Sodium 40 MG TAB PO SCH (08:40)
[2017-01-30] MEDS ORDERED: Enoxaparin 40 mg Syringe SC ONE (10:00)
--- NOTE | 2017-01-30 12:21 | PN ---
DATE: 01/30/2017 The patient denies any chest pain or dizziness. PHYSICAL EXAMINATION: VITAL SIGNS: Blood pressure 109/73, heart rate 70, temperature 98.1, respirations 20. HEENT: Normocephalic. NECK: No JVD. CHEST: Minimal rhonchi. HEART: S1, S2 regular. Grade IV/ ejection systolic murmur over left sternal border. ABDOMEN: Soft. EXTREMITIES: No edema. ASSESSMENT: 1. Chest pain, myocardial infarction is ruled out. 2. Severe aortic stenosis. RECOMMENDATIONS: Continue current aspirin and Pravachol therapy. The patient was offered cardiac ca theterization today at [facility] at 1 p.m. However, the patient and his declined because of previous tragic memory with another family member that happened in [facility], which they c onsidered to be an ominous step to go to [facility]. In the meantime, the patient could not be scheduled for cardiac catheterization at [facility] because of scheduling issue. The patient w ill undergo the procedure tomorrow at 9:30 at [facility]. Jose Scott MD cc: [id number] TT: 01/30/2017 12:20:19 Confirmation # [id number] Dictation # [id number]
[2017-01-30 13:11] LABS: PARTIAL THROMBOPLASTIN TIME 26.9 SECONDS (23.3-32.5)
--- NOTE | 2017-01-31 00:29 | CP.PCM.PN ---
Subjective - Date & Time of Evaluation Date of Evaluation: 01/30/17 Time of Evaluation: 15:15 Objective - Vital Signs/Intake and Output Vital Signs (last 24 hours): Temp Pulse Resp BP Pulse Ox 98.0 F 68 18 114/72 97 01/30/17 23:37 01/30/17 23:37 01/30/17 23:37 01/30/17 23:37 01/30/17 23:37 Intake and Output: 01/30/17 01/31/17 18:59 06:59 Intake Total 1300 Balance 1300 - Medications Medications: Current Medications Aspirin (Aspirin) 325 mg PO DAILY [facility] Last Admin: 01/30/17 12:18 Dose: 325 mg Famotidine (Pepcid) 20 mg PO BID [facility] Last Admin: 01/30/17 17:10 Dose: 20 mg Levofloxacin/Dextrose (Levaquin 500mg) 100 mls @ 100 mls/hr IVPB DAILY [facility] Last Admin: 01/30/17 08:40 Dose: 100 mls/hr Isoniazid (Niazid) 300 mg PO DAILY [facility] Last Admin: 01/30/17 08:24 Dose: 300 mg Pravastatin Sodium (Pravachol) 40 mg PO DAILY [facility] Last Admin: 01/30/17 08:40 Dose: 40 mg Pyridoxine HCl (Vitamin B6 50 Mg Tab) 50 mg PO DAILY [facility] Last Admin: 01/30/17 08:25 Dose: 50 mg - Labs Labs: PT 11.4 SECONDS (9.6-11.2) H 01/30/17 12:20 INR 1.10 (0.92-1.08) H 01/30/17 12:20 APTT 26.9 SECONDS (23.3-32.5) 01/30/17 12:20 Assessment and Plan (1) Chest pain Status: Suspected
[2017-01-31] MEDS: Pravastatin Sodium 40 MG TAB PO SCH (09:12)
--- NOTE | 2017-01-31 12:06 | CP.PCM.PN ---
Subjective - Date & Time of Evaluation Date of Evaluation: 01/31/17 Time of Evaluation: 12:05 Objective - Vital Signs/Intake and Output Vital Signs (last 24 hours): Temp Pulse Resp BP Pulse Ox 97.8 F 74 18 127/80 95 01/31/17 07:57 01/31/17 09:00 01/31/17 07:57 01/31/17 07:57 01/31/17 07:57 - Medications Medications: Current Medications Aspirin (Aspirin) 325 mg PO DAILY [facility] Last Admin: 01/31/17 09:14 Dose: 325 mg Famotidine (Pepcid) 20 mg PO BID [facility] Last Admin: 01/31/17 09:12 Dose: 20 mg Levofloxacin/Dextrose (Levaquin 500mg) 100 mls @ 100 mls/hr IVPB DAILY [facility] Last Admin: 01/31/17 09:00 Dose: 100 mls/hr Isoniazid (Niazid) 300 mg PO DAILY [facility] Last Admin: 01/31/17 09:12 Dose: 300 mg Pravastatin Sodium (Pravachol) 40 mg PO DAILY [facility] Last Admin: 01/31/17 09:12 Dose: 40 mg Pyridoxine HCl (Vitamin B6 50 Mg Tab) 50 mg PO DAILY [facility] Last Admin: 01/31/17 09:12 Dose: 50 mg - Labs Labs: PT 11.4 SECONDS (9.6-11.2) H 01/30/17 12:20 INR 1.10 (0.92-1.08) H 01/30/17 12:20 APTT 26.9 SECONDS (23.3-32.5) 01/30/17 12:20 Assessment and Plan (1) Chest pain Status: Suspected
--- NOTE | 2017-01-31 13:22 | PN ---
DATE: 01/31/2017 The patient denies chest pain or shortness of breath. PHYSICAL EXAMINATION: VITAL SIGNS: Blood pressure 101/68, heart rate 79, temperature 97.7, respirations 18. HEENT: Normocephalic. NECK: No JVD. CHEST: Clear. HEART: S1, S2 regular. Grade IV/ ejection systolic murmur over the left sternal border. ABDOMEN: Soft. EXTREMITIES: No edema. LABORATORIES: PT 11.4, INR is 1.1, PTT 26.9. ASSESSMENT: 1. Chest pain, myocardial infarction was ruled out. 2. Severe aortic stenosis. 3. Chronic obstructive lung disease. 4. Sleep apnea. RECOMMENDATIONS: Continue current aspirin and Pravachol therapy. The cardiac catheterization that w as scheduled for today has been canceled because of technical issue with the cardiac veterinary laboratory diagnostician that ne eded maintenance service. The case was rescheduled for tomorrow morning at 9:00 a.m. However, if e technical issues remain with [facility] veterinary laboratory diagnostician, the patient agreed to be done at [facility]. Jose Scott MD cc: [id number] TT: 01/31/2017 13:21:24 Confirmation # [id number] Dictation # [id number]
[2017-02-01 07:51] LABS: HEMATOCRIT 41.1 % (35.0-51.0); MEAN CELL VOLUME 92.6 fl (80.0-94.0); MEAN CORPUSCULAR HEMOGLOBIN 31.5 pg (27.0-31.0); MEAN CORPUSCULAR HGB CONC 34.1 g/dL (33.0-37.0); RED CELL DISTRIBUTION WIDTH 13.1 % (11.5-14.5); WHITE BLOOD COUNT 4.1 K/uL (4.8-10.8)
[2017-02-01 08:04] LABS: BLOOD UREA NITROGEN 19 mg/dl (9-20); CALCIUM 9.5 mg/dL (8.4-10.2); CARBON DIOXIDE 32 mmol/L (22-30); CHLORIDE 103 mmol/L (98-107); GFR AFRICAN-AMERICAN > 60; GLUCOSE,RANDOM 96 mg/dL (75-110); SODIUM 145 mmol/l (132-148)
[2017-02-01 08:21] LABS: POTASSIUM 5.4 MMOL/L (3.6-5.0)
[2017-02-01] MEDS: Pravastatin Sodium 40 MG TAB PO SCH (09:00)
--- NOTE | 2017-02-01 15:14 | PN ---
DATE: 02/01/2017 The patient underwent cardiac catheterization which revealed moderate aortic insufficiency and modera te aortic stenosis; however, further imaging suggests to me moderate to severe aortic insufficiency, normal coronary circulation and normal ejection fraction. The case was discussed with the cardiothor acic surgeon at [facility] at the approval of the patient's , and plans were being mad e to transfer the patient to [place]. However, the changed her mind and requested to be vlilatoro sferred to another surgeon at [place]. I did leave her my cell phone number to have the surgeon melly dailey the cryptologic supervisor at [place] contact me, but neither has called me, and the hospital is in the pr ocess of arranging for a bed and a transfer of the patient to [place]. Jose Scott MD cc: [id number] TT: 02/01/2017 15:13:48 Confirmation # [id number] Dictation # [id number] mn
[2017-02-01 19:36] LABS: BLOOD UREA NITROGEN 17 mg/dl (9-20); CALCIUM 9.1 mg/dL (8.4-10.2); CARBON DIOXIDE 27 mmol/L (22-30); CHLORIDE 102 mmol/L (98-107); GFR AFRICAN-AMERICAN > 60; GLUCOSE,RANDOM 153 mg/dL (75-110); POTASSIUM 4.5 MMOL/L (3.6-5.0); SODIUM 141 mmol/l (132-148)
--- NOTE | 2017-02-01 23:22 | CP.PCM.PN ---
Subjective - Date & Time of Evaluation Date of Evaluation: 02/01/17 Time of Evaluation: 14:00 Objective - Vital Signs/Intake and Output Vital Signs (last 24 hours): Temp Pulse Resp BP Pulse Ox 97.8 F 85 18 108/69 97 02/01/17 19:44 02/01/17 19:44 02/01/17 19:44 02/01/17 19:44 02/01/17 19:44 - Medications Medications: Current Medications Aspirin (Aspirin) 325 mg PO DAILY [facility] Last Admin: 02/01/17 09:00 Dose: Not Given Famotidine (Pepcid) 20 mg PO BID [facility] Last Admin: 02/01/17 20:16 Dose: 20 mg Levofloxacin/Dextrose (Levaquin 500mg) 100 mls @ 100 mls/hr IVPB DAILY [facility] Last Admin: 02/01/17 09:00 Dose: Not Given Isoniazid (Niazid) 300 mg PO DAILY [facility] Last Admin: 02/01/17 09:00 Dose: Not Given Pravastatin Sodium (Pravachol) 40 mg PO DAILY [facility] Last Admin: 02/01/17 09:00 Dose: Not Given Pyridoxine HCl (Vitamin B6 50 Mg Tab) 50 mg PO DAILY [facility] Last Admin: 02/01/17 09:00 Dose: Not Given - Labs Labs: 02/01/17 05:30 02/01/17 19:00 PT 11.4 SECONDS (9.6-11.2) H 01/30/17 12:20 INR 1.10 (0.92-1.08) H 01/30/17 12:20 APTT 26.9 SECONDS (23.3-32.5) 01/30/17 12:20 Assessment and Plan (1) Chest pain Assessment & Plan: S/P Cardiac Cath- Normal Coronaries. Confirmed Aortic Stenosis Status: Resolved (2) Aortic stenosis Status: Acute (3) Latent tuberculosis Status: Acute (4) DVT prophylaxis Status: Inactive (5) Bronchitis Assessment & Plan: IV ABx Improving Status: Acute
[2017-02-02] MEDS: Pravastatin Sodium 40 MG TAB PO SCH (09:13)
--- NOTE | 2017-02-02 14:14 | PN ---
DATE: 02/02/2017 The patient is comfortable. He denies any chest pain or shortness of breath. No groin bleeding. PHYSICAL EXAMINATION: VITAL SIGNS: Blood pressure 95/58, heart rate 105, temperature 98.2, respirations 18. HEENT: Normocephalic. NECK: No JVD. CHEST: Clear. HEART: S1, S2 regular. Grade IV/ ejection systolic murmur over left sternal border and III/ ear ly diastolic murmur. ABDOMEN: Soft. EXTREMITIES: No edema. No groin hematoma. ASSESSMENT: 1. Moderate to severe aortic insufficiency. 2. Moderate aortic stenosis. 3. Chronic obstructive lung disease. 4. 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 RECOMMENDATIONS: Continue current isoniazid, Pravachol and aspirin. Cardiac surgeon from [facility] contacted me last evening. I did fax him the pressure tracings of a simultaneous aortic va lve and left ventricular recordings. I did also send him a text video clip of the patient's aortogra m. Awaiting a bed to be available at [facility] for transfer. Jose Scott MD cc: [id number] TT: 02/02/2017 14:13:52 Confirmation # [id number] Dictation # [id number] mn
--- NOTE | 2017-02-02 20:43 | CP.PCM.PN ---
Subjective - Date & Time of Evaluation Date of Evaluation: 02/02/17 Time of Evaluation: 15:00 - Subjective Subjective: Seen and examined at the bed side. No chest pain or sob at rest. S/P Cardiac Catheter showed Mod-severe but normal Coronaries. Awaiting transfer to [facility] for AV Replacement. Objective - Vital Signs/Intake and Output Vital Signs (last 24 hours): Temp Pulse Resp BP Pulse Ox 97.5 F L 57 L 18 179/86 H 100 02/02/17 18:54 02/02/17 18:54 02/02/17 18:54 02/02/17 18:54 02/02/17 18:54 - Medications Medications: Current Medications Aspirin (Aspirin) 325 mg PO DAILY [facility] Last Admin: 02/02/17 09:12 Dose: 325 mg Famotidine (Pepcid) 20 mg PO BID [facility] Last Admin: 02/02/17 17:07 Dose: 20 mg Levofloxacin/Dextrose (Levaquin 500mg) 100 mls @ 100 mls/hr IVPB DAILY [facility] Isoniazid (Niazid) 300 mg PO DAILY [facility] Pravastatin Sodium (Pravachol) 40 mg PO DAILY [facility] Last Admin: 02/02/17 09:13 Dose: 40 mg Pyridoxine HCl (Vitamin B6 50 Mg Tab) 50 mg PO DAILY [facility] Last Admin: 02/02/17 09:12 Dose: 50 mg - Labs Labs: 02/01/17 05:30 02/01/17 19:00 PT 11.4 SECONDS (9.6-11.2) H 01/30/17 12:20 INR 1.10 (0.92-1.08) H 01/30/17 12:20 APTT 26.9 SECONDS (23.3-32.5) 01/30/17 12:20 - Constitutional Appears: Well, No Acute Distress - Head Exam Head Exam: ATRAUMATIC, NORMAL INSPECTION, NORMOCEPHALIC - Eye Exam Eye Exam: EOMI, Normal appearance, PERRL Pupil Exam: NORMAL ACCOMODATION, PERRL - ENT Exam ENT Exam: Mucous Membranes Moist, Normal Exam - Neck Exam Neck Exam: Full ROM, Normal Inspection. absent: Lymphadenopathy - Respiratory Exam Respiratory Exam: Clear to Ausculation Bilateral, NORMAL BREATHING PATTERN - Cardiovascular Exam Cardiovascular Exam: REGULAR RHYTHM, +S1, +S2, Murmur - GI/Abdominal Exam GI & Abdominal Exam: Soft, Normal Bowel Sounds. absent: Tenderness - Extremities Exam Extremities Exam: Full ROM, Normal Capillary Refill, Normal Inspection. absent : Joint Swelling, Pedal Edema - Back Exam Back Exam: NORMAL INSPECTION. absent: CVA tenderness (L), CVA tenderness (R) - Neurological Exam Neurological Exam: Alert, Awake, CN II-XII Intact, Normal Gait, Oriented x3 - Psychiatric Exam Psychiatric exam: Normal Affect, Normal Mood - Skin Skin Exam: Dry, Intact, Normal Color, Warm Assessment and Plan (1) Chest pain Assessment & Plan: ASA Status: Resolved (2) Aortic stenosis Assessment & Plan: Mood-Severe Stenosis; Normal Coronaries Status: Chronic (3) Latent tuberculosis Assessment & Plan: INH/Pyridoxine Status: Acute (4) DVT prophylaxis Assessment & Plan: Lovenox Status: Inactive (5) Bronchitis Assessment & Plan: Completed 7 days of ABx D/C Levaquin Status: Acute
[2017-02-03 08:46] VITALS: BP 114/76; PULSE 78; RESP 18; TEMP 98.1; O2SAT 95
[2017-02-03] MEDS: Pravastatin Sodium 40 MG TAB PO SCH (10:07)
--- NOTE | 2017-02-03 10:58 | PN ---
DATE: 02/03/2017 The patient denies any chest pain or groin bleeding. PHYSICAL EXAMINATION: VITAL SIGNS: Blood pressure 114/76, heart rate 78, temperature 98.1, respirations 18. HEENT: Normocephalic. NECK: No JVD. CHEST: Clear. HEART: S1, S2 regular. Grade IV/ ejection systolic murmur over the left sternal border and grade III/ early diastolic murmur over the aortic area. ASSESSMENT: 1. Moderate to severe aortic insufficiency. 2. Moderate aortic stenosis. 3. of pulmonary tuberculosis is being treated. 4. History of sleep apnea. RECOMMENDATIONS: Continue aspirin at 325 mg once a day, INH at 300 mg daily, Pravachol at 40 mg once a day, vitamin B6 50 mg once a day. Start subcutaneous Lovenox at 30 mg once a day. If there is no decision by [facility] to accept the patient, then the patient can be discharged and see his own car diologist and a cardiothoracic surgeon as an outpatient. Jose Scott MD cc: [id number] TT: 02/03/2017 10:57:36 Confirmation # [id number] Dictation # [id number]
[2017-02-03] MEDS ORDERED: Enoxaparin 30 mg Syringe SC SCH (11:00)
--- NOTE | 2017-02-03 11:02 | CP.PCM.PCO ---
Assessment/Plan - Assessment/Plan Assessment (Free Text): Pt stable, in no apparent distress. Pt is s/p cardiac cath and is being transferred to [facility] for aortic valve replacement. Pt seen and cleared for transfer to [place] by all consultants. Dr. Scott has been in contact with automatic drill operator at [place]. Discussed with Dr. Horan who has approved transfer. Pt and RN aware of plan - Problems Patient Problems: Problem List (Active/Current) Problem Status Priority Diagnosed Code Latent tuberculosis Acute R76.11 Aortic stenosis Chronic I35.0 Acute bronchitis Resolved High J20.9 Chest pain Resolved High R07.9
--- NOTE | 2017-02-03 23:21 | CP.PCM.DIS ---
Provider - Provider Date of Admission: 01/27/17 15:07 Attending physician: Angel Horan MD Time Spent in preparation of Discharge (in minutes): 25 Diagnosis - Discharge Diagnosis (1) Chest pain Status: Resolved Priority: High (2) Aortic stenosis Status: Chronic (3) Latent tuberculosis Status: Acute (4) DVT prophylaxis Status: Inactive Priority: Medium (5) Bronchitis Status: Acute Hospital Course - Lab Results Lab Results: Micro Results 01/29/17 14:09 Sputum Gram Stain - Final 01/29/17 14:09 Sputum Sputum Culture - Final NORMAL ORAL DARRION Most Recent Lab Values WBC 4.1 K/uL (4.8-10.8) L 02/01/17 05:30 RBC 4.44 Mil/uL (4.40-5.90) 02/01/17 05:30 Hgb 14.0 g/dL (12.0-18.0) 02/01/17 05:30 Hct 41.1 % (35.0-51.0) 02/01/17 05:30 MCV 92.6 fl (80.0-94.0) 02/01/17 05:30 MCH 31.5 pg (27.0-31.0) H 02/01/17 05:30 MCHC 34.1 g/dL (33.0-37.0) 02/01/17 05:30 RDW 13.1 % (11.5-14.5) 02/01/17 05:30 Plt Count 150 K/uL (130-400) 02/01/17 05:30 MPV 8.6 fl (7.2-11.7) 01/26/17 10:40 Neut % (Auto) 60.5 % (50.0-75.0) 01/26/17 10:40 Lymph % (Auto) 22.0 % (20.0-40.0) 01/26/17 10:40 [place] % (Auto) 15.0 % (0.0-10.0) H 01/26/17 10:40 Eos % (Auto) 1.9 % (0.0-4.0) 01/26/17 10:40 Baso % (Auto) 0.6 % (0.0-2.0) 01/26/17 10:40 Neut # 2.3 K/uL (1.8-7.0) 01/26/17 10:40 Lymph # 0.9 K/uL (1.0-4.3) L 01/26/17 10:40 [place] # 0.6 K/uL (0.0-0.8) 01/26/17 10:40 Eos # 0.1 K/uL (0.0-0.7) 01/26/17 10:40 Baso # 0.0 K/uL (0.0-0.2) 01/26/17 10:40 PT 11.4 SECONDS (9.6-11.2) H 01/30/17 12:20 INR 1.10 (0.92-1.08) H 01/30/17 12:20 APTT 26.9 SECONDS (23.3-32.5) 01/30/17 12:20 D-Dimer, Quantitative 0.52 mg/L FEU (0-0.50) H 01/26/17 14:50 Sodium 141 mmol/l (132-148) 02/01/17 19:00 Potassium 4.5 MMOL/L (3.6-5.0) 02/01/17 19:00 Chloride 102 mmol/L (98-107) 02/01/17 19:00 Carbon Dioxide 27 mmol/L (22-30) 02/01/17 19:00 Anion Gap 17 (10-20) 02/01/17 19:00 BUN 17 mg/dl (9-20) 02/01/17 19:00 Creatinine 0.7 mg/dL (0.8-1.5) L 02/01/17 19:00 Est GFR ( Amer) > 60 02/01/17 19:00 Est GFR (Non-Af Amer) > 60 02/01/17 19:00 Random Glucose 153 mg/dL (75-110) H 02/01/17 19:00 Calcium 9.1 mg/dL (8.4-10.2) 02/01/17 19:00 Total Bilirubin 0.5 mg/dl (0.2-1.3) 01/26/17 10:40 AST 24 U/L (17-59) 01/26/17 10:40 ALT 31 U/L (21-72) 01/26/17 10:40 Alkaline Phosphatase 60 U/L (38-126) 01/26/17 10:40 Troponin I 0.0160 ng/mL (0.00-0.120) 01/27/17 01:45 Total Protein 7.1 G/DL (6.3-8.2) 01/26/17 10:40 Albumin 3.9 g/dL (3.5-5.0) 01/26/17 10:40 Globulin 3.2 gm/dL (2.2-3.9) 01/26/17 10:40 Albumin/Globulin Ratio 1.2 (1.0-2.1) 01/26/17 10:40 Urine Color Yellow (YELLOW) 01/27/17 01:15 Urine Clarity Clear (Clear) 01/27/17 01:15 Urine pH 7.0 (5.0-8.0) 01/27/17 01:15 Ur Specific [place] 1.036 (1.003-1.030) H 01/27/17 01:15 Urine Protein Negative mg/dL (NEGATIVE) 01/27/17 01:15 Urine Glucose (UA) Neg mg/dL (Normal) 01/27/17 01:15 Urine Ketones Negative mg/dL (NEGATIVE) 01/27/17 01:15 Urine Blood Negative (NEGATIVE) 01/27/17 01:15 Urine Nitrate Negative (NEGATIVE) 01/27/17 01:15 Urine Bilirubin Negative (NEGATIVE) 01/27/17 01:15 Urine Urobilinogen 0.2-1.0 mg/dL (0.2-1.0) 01/27/17 01:15 Ur Leukocyte Esterase Neg Renée/uL (Negative) 01/27/17 01:15 Urine RBC (Auto) 3 /hpf (0-3) 01/27/17 01:15 Urine Microscopic WBC < 1 /hpf (0-5) 01/27/17 01:15 Urine Opiates Screen Negative (NEGATIVE) 01/27/17 18:50 Urine Methadone Screen Negative (NEGATIVE) 01/27/17 18:50 Ur Barbiturates Screen Negative (NEGATIVE) 01/27/17 18:50 Ur Phencyclidine Scrn Negative (NEGATIVE) 01/27/17 18:50 Ur Amphetamines Screen Negative (NEGATIVE) 01/27/17 18:50 U Benzodiazepines Scrn Negative (NEGATIVE) 01/27/17 18:50 U Oth Cocaine Metabols Negative (NEGATIVE) 01/27/17 18:50 U Cannabinoids Screen Negative (NEGATIVE) 01/27/17 18:50 Influenza Typ A,B (EIA) Negative for flu a/b (NEGATIVE) 01/27/17 01:45 Discharge Exam - Head Exam Head Exam: ATRAUMATIC, NORMAL INSPECTION, NORMOCEPHALIC Discharge Plan - Discharge Medications Prescriptions: Famotidine [Pepcid] 20 mg PO BID #30 tab - Follow Up Plan Condition: GOOD Disposition: Trans to Other Acute Care Hosp Instructions: Aortic Stenosis (DC), How to Stop Smoking (DC)
--- NOTE | 2017-02-23 09:33 | RAD ---
HISTORY: chest pain COMPARISON: 11/25/2014 TECHNIQUE: Chest PA and lateral FINDINGS: LUNGS: The lungs are clear. PLEURA: No significant pleural effusion identified. No pneumothorax apparent. CARDIOVASCULAR: Normal. OSSEOUS STRUCTURES: Within normal limits for the patient's age. VISUALIZED UPPER ABDOMEN: Normal. OTHER FINDINGS: None. IMPRESSION: No active pulmonary disease.
== END 2017-02-03 12:13 | disposition short-term general hospital (02) | DRG 287 ==
LOC: CANPREER → H.ER 09:16 → UNDOADMIN 11:22 → H.TEL 11:22 → H.ERHOLD 14:36 → H.TEL 15:32 → OBSVTOIN 01-27 15:07
PROVIDERS: ADMIT Internal Medicine; ATTEND Internal Medicine
PROC: 4A023N7 Measurement of Cardiac Sampling and Pressure, Left Heart, Percutaneous Approach (ICD-10-PCS; principal; 2017-02-01)
PROC: B2011ZZ Plain Radiography of Multiple Coronary Arteries using Low Osmolar Contrast (ICD-10-PCS; 2017-02-01)
DX: I35.2 Nonrheumatic aortic (valve) stenosis with insufficiency (principal); J44.0 Chronic obstructive pulmonary disease with (acute) lower respiratory infection; J44.1 Chronic obstructive pulmonary disease with (acute) exacerbation; J20.9 Acute bronchitis, unspecified; F17.200 Nicotine dependence, unspecified, uncomplicated; G47.33 Obstructive sleep apnea (adult) (pediatric); R76.11 Nonspecific reaction to tuberculin skin test without active tuberculosis

== ENCOUNTER 2018-12-07 23:33 | Emergency (ER) | payer BC ==
[2018-12-07 23:33] VITALS: BMI 23.3
[2018-12-08] MEDS ORDERED: Albuterol-Ipratrop 3 mg / 0.5 (3 ml) UD INH STA (00:03)
[2018-12-08] MEDS ORDERED: Albuterol-Ipratrop 3 mg / 0.5 (3 ml) UD ONE (00:27)
[2018-12-08 00:35] LABS: BASO % 0.7 % (0.0-2.0); EOS # 0.2 K/uL (0.0-0.7); EOS % 2.9 % (0.0-4.0); HEMOGLOBIN 12.2 g/dL (12.0-18.0); LYMPH # 1.6 K/uL (1.0-4.3); LYMPH % 30.7 % (20.0-40.0); MEAN CELL VOLUME 94.1 fl (80.0-94.0); MEAN CORPUSCULAR HEMOGLOBIN 31.8 pg (27.0-31.0); MEAN CORPUSCULAR HGB CONC 33.8 g/dL (33.0-37.0); MEAN PLATELET VOLUME 7.7 fl (7.2-11.7); MONO # 0.7 K/uL (0.0-0.8); MONO % 12.7 % (0.0-10.0); NEUT # 2.7 K/uL (1.8-7.0); RBC 3.82 Mil/uL (4.40-5.90); RED CELL DISTRIBUTION WIDTH 14.4 % (11.5-14.5); WHITE BLOOD COUNT 5.2 K/uL (4.8-10.8)
--- NOTE | 2018-12-08 00:35 | ED PDOC ---
History of Present Illness History of Present Illness: 63 y/ male with a PMHx of Vavlular Heart Disease, COPD and HTN presents to the ED for evaluation of flu-like symptoms, onset two weeks ago. Patient reports of developing a yellow phlegm productive cough associated with a fever (Tmax of 101) and chills. Patient states cough worsens with laying down. Otherwise, patient denies taking the flu vaccination this year, nausea and vomiting. PMD: Chace Mcknight HPI: Influenza Time Seen by Provider: 12/07/18 23:50 Chief Complaint: Shortness Of Breath Chief Complaint (Provider): Flu-Like symptoms History Per: Patient Exam Limitations: no limitations Onset/Duration Of Symptoms: Days (x14) Symptoms include: fever, cough Hx Influenza Vaccination: No Past Medical History Reviewed: Historical Data, Nursing Documentation, Vital Signs Vital Signs: Last Vital Signs Temp 98.4 F 12/07/18 23:41 Pulse 107 H 12/07/18 23:41 Resp 26 H 12/07/18 23:57 BP 103/69 12/07/18 23:41 Pulse Ox 94 L 12/07/18 23:41 - Medical History PMH: Anxiety, COPD, HTN, Hypercholesterolemia Denies: HIV, Chronic Kidney Disease Other PMH: Valvular Heart Disease - Surgical History Other surgeries: Heart Valve Surgery - Family History Family History: States: Unknown Family Hx - Social History Current smoker - smoking cessation education provided: Yes (2-3 cigarretes per day) - Home Medications Home Medications: Ambulatory Orders Medication Instructions Recorded Aspirin [Aspirin Chewable] 81 mg PO DAILY 01/26/17 Isoniazid [Niazid] 300 mg PO DAILY 01/26/17 Pravastatin Sodium 40 mg PO DAILY 01/26/17 Pyridoxine [Vitamin B6 50 mg Tab] 50 mg PO DAILY 01/26/17 Famotidine [Pepcid] 20 mg PO BID #30 tab 02/03/17 Benzonatate [Tessalon Perle] 100 mg PO TID PRN #15 capsule 12/08/18 Methylprednisolone [Medrol Dosepak] 4 mg PO ASDIR #1 pkg 12/08/18 levoFLOXacin [Levaquin] 500 mg PO DAILY #10 tab 12/08/18 - Allergies Allergies/Adverse Reactions: Allergies Allergy/AdvReac Type Severity Reaction Status Date / Time Influenza Virus Vaccines Allergy RASH Verified 12/07/18 23:41 Review of Systems ROS Statement: Except As Marked, All Systems Reviewed And Found Negative Constitutional: Positive for: Fever, Chills Respiratory: Positive for: Cough Gastrointestinal: Negative for: Nausea, Vomiting Physical Exam - Reviewed Nursing Documentation Reviewed: Yes Vital Signs Reviewed: Yes - Physical Exam Appears: Positive for: No Acute Distress Head Exam: Positive for: ATRAUMATIC, NORMOCEPHALIC Skin: Positive for: Normal Color, Warm, Dry Eye Exam: Positive for: Normal appearance, EOMI, PERRL Neck: Positive for: Normal, Painless ROM, Supple Cardiovascular/Chest: Positive for: Regular Rate, Rhythm. Negative for: Murmur Respiratory: Positive for: Decreased Breath Sounds (Decreased air entry bilaterally), Rales (at the bases bilaterally) Gastrointestinal/Abdominal: Positive for: Normal Exam, Soft. Negative for: Tenderness Extremity: Positive for: Normal ROM. Negative for: Deformity Neurologic/Psych: Positive for: Alert, Oriented. Negative for: Motor/Sensory Deficits Medical Decision Making Medical Decision Making: Time: 27 Impression: 63 y/o male presenting with flu-like symptoms Plan: -- EKG -- B-Type Natriuretic -- CMP -- Lact Acid, Plasma -- Troponin I -- ED Urine Dipstick -- CBC with Differentials -- PTT -- Prothrombin Time -- CXR Portable -- Duoneb 3 mg/0.5 mg 3 ml (UD) 9 ml INH -- Blood culture -- Heplock Insertion -- Peak Flow Pre/Post Tx -- Influenza A B -- Urinalysis Time: 0203 -- CXR shows no active disease. Labs demonstrate no clinically significant abnormalities with the exception of an elevated INR. Patient reports INR was in the 7 range two weeks ago and was recommended to hold coumadine as per recommendation of PMD. On re-evaluation, patient reports an improvement of symptoms. Patient denies active bleeding and brusing. Patient denies any active bleeding and brusing. Patient advised to hold coumadine for two days. Return precautions provided. Patient to be discharge home with a diagnosis of bronchitis. Patient instructed to follow up with PMD in one week. Scribe Attestation: Documented by Agustin Cabrera, acting as a scribe for Zane Bolton MD. Provider Scribe Attestation: All medical record entries made by the Scribe were at my direction and personally dictated by me. I have reviewed the chart and agree that the record accurately reflects my personal performance of the history, physical exam, medical decision making, and the department course for this patient. I have also personally directed, reviewed, and agree with the discharge instructions and disposition. - Laboratory Results Result Diagrams: 12/08/18 00:10 12/08/18 00:10 - ECG O2 Sat by Pulse Oximetry: 94 Disposition - Clinical Impression Clinical Impression: Bronchitis - Patient ED Disposition Is Patient to be Admitted: No Counseled Patient/Family Regarding: Studies Performed, Need For Followup - Disposition Disposition: Routine/Home Disposition Time: 02:03 Condition: STABLE Prescriptions: Benzonatate [Tessalon Perle] 100 mg PO TID PRN #15 capsule PRN Reason: Cough levoFLOXacin [Levaquin] 500 mg PO DAILY #10 tab Methylprednisolone [Medrol Dosepak] 4 mg PO ASDIR #1 pkg Instructions: Acute Bronchitis Forms: [facility] (Ukrainian)
[2018-12-08 00:45] LABS: PARTIAL THROMBOPLASTIN TIME 67.7 Seconds (25.6-37.1)
[2018-12-08 01:04] LABS: ALB/GLOB RATIO 1.1 (1.0-2.1); ALBUMIN 3.8 g/dL (3.5-5.0); ALT/SGPT 36 U/L (21-72); AST/SGOT 50 U/L (17-59); BLOOD UREA NITROGEN 21 mg/dl (9-20); GFR NON-AFRICAN AMERICAN > 60
[2018-12-08 01:20] LABS: B-TYPE NATRIURETIC PEPTIDE 119 pg/ml (0-900)
[2018-12-08 02:01] LABS: INR 7.8; PROTHROMBIN TIME 88.9 Seconds (9.8-13.1)
[2018-12-08 02:23] VITALS: BP 94/61; PULSE 106; RESP 18; TEMP 98.2; O2SAT 97
--- NOTE | 2018-12-08 10:41 | RAD ---
HISTORY: chest pain COMPARISON: Chest x-ray performed 01/27/17. TECHNIQUE: Chest, one view. FINDINGS: LUNGS: No focal consolidation. Please note that chest x-ray has limited sensitivity for the detection of pulmonary masses. PLEURA: No significant pleural effusion identified. No definite pneumothorax . CARDIOVASCULAR: Median sternotomy wires. Heart size appears within normal limits. Prosthetic cardiac valve. Ectatic aorta. Atherosclerotic calcifications of the aortic knob. OSSEOUS STRUCTURES: Degenerative changes. VISUALIZED UPPER ABDOMEN: Unremarkable. OTHER FINDINGS: None. IMPRESSION: No focal consolidation.
--- NOTE | 2018-12-08 16:46 | CARD ---
APPROVED REPORT Date of service: 12/07/2018 EKG Measurement Heart [id number] MD [id number] <Conclusion> Sinus tachycardia with premature ventricular complexes Otherwise normal ECG
== END 2018-12-08 02:20 | disposition home or self-care (01) ==
LOC: H.ER 23:33
DX: J40 Bronchitis, not specified as acute or chronic (principal); I10 Essential (primary) hypertension; F17.200 Nicotine dependence, unspecified, uncomplicated; J44.9 Chronic obstructive pulmonary disease, unspecified

== ENCOUNTER 2018-12-08 20:26 | Observation (INO) | payer BC ==
[2018-12-08 20:27] VITALS: BMI 23.3
[2018-12-08] MEDS ORDERED: Phytonadione 1 mg/0.5 ml Inj (Neonatal) IM ONE (20:49)
[2018-12-08] MEDS ORDERED: Phytonadione 10 mg/ml Inj (Adult) IV ONE ×2 (20:51→23:41)
--- NOTE | 2018-12-08 21:08 | ED PDOC ---
HPI: Wound Care - HPI Time Seen by Provider: 12/08/18 20:42 Chief Complaint (Nursing): Wound Check Chief Complaint (Provider): Wound Check History Per: Patient Exam Limitations: no limitations Additional Complaint(s): Suhas Short is a 63 year old male with a past medical history of valvular heart disease, valve replacement, and is currently on coumadin, presents to the emergency department complaining of bleeding form the left forearm, onset this morning. Patient was seen at this ED earlier this morning complaining of a cough and was diagnosed with bronchitis. Patient states his symptoms improved upon being discharged. He returns now because the site of IV has been bleeding. Patient was advised to discontinue use of coumadin because of elevated INR levels. At home the bandage at the IV site did not saturate with blood, however he changed the bandage and noticed continued oozing from site. His reports his cough has improved and that he has no associated symptoms inclu ding chest pain, shortness of breath, or fever. PMD: Chace Ruiz Past Medical History Reviewed: Historical Data, Nursing Documentation, Vital Signs Vital Signs: Last Vital Signs Temp 98.0 F 12/08/18 20:28 Pulse 84 12/08/18 20:28 Resp 16 12/08/18 20:28 BP 131/85 12/08/18 20:28 Pulse Ox 95 12/08/18 20:28 - Medical History PMH: Anxiety, Bronchitis, COPD, HTN, Hypercholesterolemia Denies: HIV, Chronic Kidney Disease Other PMH: valvular heart disease - Surgical History Other surgeries: Valve replacement - Family History Family History: States: Unknown Family Hx - Immunization History Hx Influenza Vaccination: No - Home Medications Home Medications: Ambulatory Orders Medication Instructions Recorded Aspirin [Aspirin Chewable] 81 mg PO DAILY 01/26/17 Isoniazid [Niazid] 300 mg PO DAILY 01/26/17 Pravastatin Sodium 40 mg PO DAILY 01/26/17 Pyridoxine [Vitamin B6 50 mg Tab] 50 mg PO DAILY 01/26/17 Famotidine [Pepcid] 20 mg PO BID #30 tab 02/03/17 Benzonatate [Tessalon Perle] 100 mg PO TID PRN #15 capsule 12/08/18 Methylprednisolone [Medrol Dosepak] 4 mg PO ASDIR #1 pkg 12/08/18 levoFLOXacin [Levaquin] 500 mg PO DAILY #10 tab 12/08/18 - Allergies Allergies/Adverse Reactions: Allergies Allergy/AdvReac Type Severity Reaction Status Date / Time No Known Allergies Allergy Verified 12/08/18 20:28 Review of Systems ROS Statement: Except As Marked, All Systems Reviewed And Found Negative Constitutional: Negative for: Fever Cardiovascular: Negative for: Chest Pain Respiratory: Negative for: Cough, Shortness of Breath Musculoskeletal: Positive for: Other (bleeding from left forearm) Physical Exam - Reviewed Nursing Documentation Reviewed: Yes Vital Signs Reviewed: Yes - Physical Exam Appears: Positive for: Non-toxic, No Acute Distress Head Exam: Positive for: ATRAUMATIC, NORMOCEPHALIC Skin: Positive for: Normal Color, Warm, Dry Eye Exam: Positive for: Normal appearance, EOMI, PERRL Cardiovascular/Chest: Positive for: Regular Rate, Rhythm. Negative for: Murmur Respiratory: Positive for: Normal Breath Sounds. Negative for: Respiratory Distress Extremity: Positive for: Normal ROM, Other (some oozing from left antecubital; no pulsatile flow ). Negative for: Pedal Edema, Deformity Neurologic/Psych: Positive for: Alert, Oriented. Negative for: Motor/Sensory Deficits - Laboratory Results Result Diagrams: 12/08/18 21:34 12/08/18 21:34 - ECG O2 Sat by Pulse Oximetry: 95 (RA) Pulse Ox Interpretation: Normal Medical Decision Making Medical Decision Making: Time: 2048 Impression: 63 year old male with bleeding diathesis in setting of elevated INR levels. Plan: labs, and trial of vitamin K ordered --Type and screen --ABO/RH type --CMP --CBC with differential --PTT --PT --Vitamin K inj --IV insertion 0011 Labs reviewed and significant for elevated INR levels, and it is unclear why levels elevated from 7.8 to 10.0 despite having stopped his Coumadin. Case discussed with Dr. Carmen who advised to give pt additional 10mg vitamin K and place him on observation for further workup. Case referred to Dr. Gomez with diagnosis of Coumadin toxicity in fair condition. --------- -------- Scribe Attestation: Documented by Johan Barrera, acting as a scribe for Zane Bolton MD. Provider Scribe Attestation: All medical record entries made by the Scribe were at my direction and personally dictated by me. I have reviewed the chart and agree that the record accurately reflects my personal performance of the history, physical exam, medical decision making, and the department course for this patient. I have also personally directed, reviewed, and agree with the discharge instructions and disposition. Disposition - Clinical Impression Clinical Impression: Coumadin toxicity Counseled Patient/Family Regarding: Studies Performed, Diagnosis - Disposition Disposition Time: 00:13 Condition: FAIR - Pt Status Changed To: Hospital Disposition Of: Observation
[2018-12-08] MEDS ORDERED: Phytonadione 10 MG in Sodium Chloride 0.9% 50 ML IV ONE (21:15)
[2018-12-08 21:42] LABS: BASO % 0.2 % (0.0-2.0); HEMOGLOBIN 11.8 g/dL (12.0-18.0); LYMPH # 0.6 K/uL (1.0-4.3); LYMPH % 8.9 % (20.0-40.0); MEAN CELL VOLUME 94.3 fl (80.0-94.0); MEAN CORPUSCULAR HEMOGLOBIN 31.4 pg (27.0-31.0); MEAN CORPUSCULAR HGB CONC 33.3 g/dL (33.0-37.0); MEAN PLATELET VOLUME 7.5 fl (7.2-11.7); MONO # 0.9 K/uL (0.0-0.8); MONO % 12.5 % (0.0-10.0); NEUT # 5.4 K/uL (1.8-7.0); NEUT % 78.4 % (50.0-75.0); NRBC % 0.1 % (0.0-0.0); PLATELET COUNT 208 K/uL (130-400); RBC 3.74 Mil/uL (4.40-5.90); RED CELL DISTRIBUTION WIDTH 14.2 % (11.5-14.5); WHITE BLOOD COUNT 6.8 K/uL (4.8-10.8)
[2018-12-08 21:46] LABS: PARTIAL THROMBOPLASTIN TIME 68.2 Seconds (25.6-37.1)
[2018-12-08 22:16] LABS: ALB/GLOB RATIO 1.1 (1.0-2.1); ALBUMIN 3.8 g/dL (3.5-5.0); ALT/SGPT 40 U/L (21-72); AST/SGOT 33 U/L (17-59); BLOOD UREA NITROGEN 21 mg/dl (9-20); CALCIUM 9.2 mg/dL (8.4-10.2); GFR NON-AFRICAN AMERICAN > 60
[2018-12-08 23:02] LABS: BANDS 3 % (0-2); LYMPHOCYTE 9 % (20-50); MONOCYTE 8 % (0-10); NEUTROPHIL 79 % (42-75); PLATELET ESTIMATE NORMAL (NORMAL); REACTIVE LYMPHOCYTES 1 % (0-0); TOTAL CELLS COUNTED 100
[2018-12-08 23:24] LABS: PROTHROMBIN TIME 113.7 Seconds (9.8-13.1)
[2018-12-09] MEDS ORDERED: Phytonadione 10 mg/ml Inj (Adult) ONE (01:00)
[2018-12-09] MEDS ORDERED: Promethazine DM 12.5 mg-30 mg/10 ml Syrup PO PRN (04:14)
[2018-12-09 05:41] LABS: INR 2.2; PROTHROMBIN TIME 24.8 Seconds (9.8-13.1)
[2018-12-09 05:44] LABS: PARTIAL THROMBOPLASTIN TIME 41.5 Seconds (25.6-37.1)
[2018-12-09] MEDS ORDERED: FOLIC ACID PO SCH (09:00)
[2018-12-09] MEDS ORDERED: Multivitamin With Minerals Tab PO SCH (09:00)
[2018-12-09] MEDS ORDERED: IRON PO SCH (09:00)
[2018-12-09] MEDS ORDERED: [UNRECOGNIZED DRUG - OTHER] PO SCH (09:00)
[2018-12-09] MEDS ORDERED: MULTIVIT MIN PO SCH (09:00)
[2018-12-09] MEDS ORDERED: Pravastatin Sodium 40 MG TAB PO SCH (09:00)
[2018-12-09 09:15] VITALS: BP 129/83; PULSE 70; RESP 20; TEMP 98.5; O2SAT 97
[2018-12-09] MEDS: Albuterol-Ipratrop 3 mg / 0.5 (3 ml) UD INH SCH ×2 (09:22→14:29)
--- NOTE | 2018-12-11 18:49 | CP.PCM.HP ---
History of Present Illness - History of Present Illness History of Present Illness: This is a 63 y/o male with hx of of valvular heart disease and valve replacement Zack was admitted for persistent bleeding on an iv site. He was initially seen for bronchiitis at the ER, treated and sent home but at home he noted persistent bleed hence came back to Er where he was noted to have an INR of 10. He was given vit K and kept for observation He denies any chest pain or SOB No other bleeding sites were noted. He was previously o Coumadin 6 mg daily. A repeat INR on the day of my exam showed 2.2 Medical Hx Heart valve replacement HTN HYperlipidemia ' asthma bronchiitis Present on Admission - Present on Admission Any Indicators Present on Admission: No History of DVT/PE: No History of Uncontrolled Diabetes: No Urinary Catheter: No Decubitus Ulcer Present: No Past Patient History - Past Medical History & Family History Past Medical History?: Yes - Past Social History Smoking Status: Light Smoker < 10 Cigarettes Daily - CARDIAC Hx Cardiac Disorders: Yes Hx Hypercholesterolemia: Yes Hx Hypertension: Yes Other/Comment: Aortic Stenosis. Heart Valve replacement 02/2017 - PULMONARY Hx Respiratory Disorders: Yes Hx Bronchitis: Yes Hx Chronic Obstructive Pulmonary Disease (COPD): Yes Hx Sleep Apnea: Yes Hx Tuberculosis: (Latent TB) - NEUROLOGICAL Hx Neurological Disorder: No - HEENT Hx HEENT Problems: No Hx Deafness: Yes (Chaz hearing aids) - RENAL Hx Chronic Kidney Disease: No - ENDOCRINE/METABOLIC Hx Endocrine Disorders: No - HEMATOLOGICAL/ONCOLOGICAL Hx Blood Disorders: No Hx AIDS: No Hx Human Immunodeficiency Virus (HIV): No - INTEGUMENTARY Hx Dermatological Problems: No - MUSCULOSKELETAL/RHEUMATOLOGICAL Hx Musculoskeletal Disorders: No Hx Falls: No - GASTROINTESTINAL Hx Gastrointestinal Disorders: No - GENITOURINARY/GYNECOLOGICAL Hx Genitourinary Disorders: No - PSYCHIATRIC Hx Psychophysiologic Disorder: Yes Hx Anxiety: Yes Hx Substance Use: No - SURGICAL HISTORY Hx Surgeries: Yes Hx Orthopedic Surgery: Yes (Left knee) Other/Comment: valve replacement 02/2017 - ANESTHESIA Hx Anesthesia: Yes Hx Anesthesia Reactions: No Hx Malignant Hyperthermia: No Has any member of the family had a problem w/ anesthesia?: No Meds Allergies/Adverse Reactions: Allergies Allergy/AdvReac Type Severity Reaction Status Date / Time No Known Allergies Allergy Verified 12/08/18 20:28 Physical Exam - Head Exam Head Exam: NORMAL INSPECTION - Eye Exam Eye Exam: Normal appearance - ENT Exam ENT Exam: Mucous Membranes Moist - Respiratory Exam Respiratory Exam: Clear to Auscultation Bilateral - Cardiovascular Exam Cardiovascular Exam: REGULAR RHYTHM - GI/Abdominal Exam GI & Abdominal Exam: Normal Bowel Sounds Results - Vital Signs Recent Vital Signs: Last Vital Signs Temp 98.5 F 12/09/18 09:00 Pulse 70 12/09/18 09:21 Resp 20 12/09/18 09:00 BP 129/83 12/09/18 09:21 Pulse Ox 97 12/09/18 09:00 - Labs Result Diagrams: 12/08/18 21:34 12/08/18 21:34 Assessment & Plan (1) Coumadin toxicity Status: Acute (2) Bronchitis Status: Acute - Assessment and Plan (Free Text) Plan: Cont meds advised to restart Coumadin but 3 mg only advised to see copy and print associate the day after discharge Discharge patient
== END 2018-12-09 15:00 | disposition home or self-care (01) ==
LOC: H.ER 20:26 → H.ERHOLD 23:36 → H.MEDSURG1 12-09 03:17
PROVIDERS: ADMIT Family Medicine; ATTEND Family Medicine
DX: D69.9 Hemorrhagic condition, unspecified (principal); T45.515A Adverse effect of anticoagulants, initial encounter; Y92.9 Unspecified place or not applicable; Z79.01 Long term (current) use of anticoagulants; Z79.82 Long term (current) use of aspirin; Z87.891 Personal history of nicotine dependence; Z95.2 Presence of prosthetic heart valve; F41.9 Anxiety disorder, unspecified; R76.11 Nonspecific reaction to tuberculin skin test without active tuberculosis; E78.00 Pure hypercholesterolemia, unspecified; E78.5 Hyperlipidemia, unspecified; G47.30 Sleep apnea, unspecified; H91.93 Unspecified hearing loss, bilateral; I10 Essential (primary) hypertension; I35.0 Nonrheumatic aortic (valve) stenosis; J44.9 Chronic obstructive pulmonary disease, unspecified; R79.1 Abnormal coagulation profile; J20.9 Acute bronchitis, unspecified; J44.0 Chronic obstructive pulmonary disease with (acute) lower respiratory infection
CPT/HCPCS: 36415; 80053; 85025; 85610; 85730; 86850; 86860; 86870; 86900; 94640; 94660; 96365; 96376; 99283; G0378; J3430